=== PATIENT | female | born 1995 | race Caucasian/White ===

== ENCOUNTER 2016-07-20 20:11 | Emergency (ER) | payer MEDICAID ==
[2016-07-20 20:32] VITALS: BP 115/63
[2016-07-20 23:03] LABS: AMORPHOUS SEDIMENT,URINE TRACE /HPF; APPEARANCE,URINE SLIGHTLY-CLOUDY; BILIRUBIN,URINE NEGATIVE (NEGATIVE); GLUCOSE, URINE NEGATIVE (NEGATIVE); KETONES,URINE NEGATIVE (NEGATIVE); LEUKOCYTE ESTERASE,URINE TRACE (NEGATIVE); NITRITE,URINE NEGATIVE (NEGATIVE); PROTEIN,URINE NEGATIVE (NEGATIVE); URINE SPECIFIC GRAVITY 1.021; UROBILINOGEN,URINE NEGATIVE mg/dL (<2.0)
[2016-07-20 23:04] LABS: ABSOLUTE EOSINOPHILS # (AUTO) 0.2 10^3/uL (0.0-0.6); ABSOLUTE LYMPHOCYTES (AUTO) 2.5 10^3/uL (0.5-4.7); ABSOLUTE MONOCYTES (AUTO) 0.6 10^3/uL (0.1-1.4); ABSOLUTE NEUT (AUTO) 2.8 10^3/uL (1.7-8.2); BASOPHILS % (AUTO) 0.5 % (0-2); EOSINOPHILS % (AUTO) 2.7 % (0-6); HEMOGLOBIN 12.2 g/dL (12.0-15.5); HGB HCT DIFFERENCE 0.6; LYMPHOCYTES % (AUTO) 41.3 % (13-45); MEAN CORPUSCULAR HGB CONC 33.8 g/dL (32.0-36.0); MEAN CORPUSCULAR VOLUME 86 fl (80-97); MONOCYTES % (AUTO) 9.9 % (3-13); RED BLOOD COUNT 4.19 10^6/uL (3.72-5.28); RED CELL DISTRIBUTION WIDTH 14.7 % (11.5-14.0); SEGMENTED NEUTROPHILS % (AUTO) 45.6 % (42-78); WHITE BLOOD COUNT 6.1 10^3/uL (4.0-10.5)
[2016-07-20 23:16] LABS: ALANINE AMINOTRANSFERASE 29 U/L (9-52); ALBUMIN 4.4 g/dL (3.5-5.0); ALKALINE PHOSPHATASE 64 U/L (38-126); ANION GAP 13 (5-19); ASPARTATE AMINO TRANSFERASE 23 U/L (14-36); BILIRUBIN,DIRECT 0.1 mg/dL (0.0-0.4); BILIRUBIN,TOTAL 0.2 mg/dL (0.2-1.3); BLOOD UREA NITROGEN 14 mg/dL (7-20); CALCIUM 9.7 mg/dL (8.4-10.2); CARBON DIOXIDE 25 mmol/L (22-30); CHLORIDE 102 mmol/L (98-107); CREATININE RESULT 0.51 mg/dL (0.52-1.25); GLUCOSE 70 mg/dL (75-110); LIPASE 84.2 U/L (23-300); POTASSIUM 4.1 mmol/L (3.6-5.0); SODIUM 139.8 mmol/L (137-145); TOTAL PROTEIN 6.7 g/dL (6.3-8.2)
== END 2016-07-20 23:53 | disposition left against medical advice (07) ==
LOC: ER 20:11
DX: Z53.21 Procedure and treatment not carried out due to patient leaving prior to being seen by health care provider (principal)
CPT/HCPCS: 36415; 80053; 81001; 83690; 84702; 85025

== ENCOUNTER 2016-08-18 17:41 | Emergency (ER) | payer MEDICAID ==
[2016-08-18 17:55] VITALS: BP 98/68
--- NOTE | 2016-08-18 18:20 | ER Document Report ---
ED Flu Like - General Chief Complaint: Fever Stated Complaint: FEVER/CHILLS W/ Time Seen by Provider: 08/18/16 18:08 Mode of Arrival: Ambulatory Information source: Patient Notes: [id number] female presents to ED for complaint of fever chills body aches since yesterday. She states she took Tylenol last night none today. She is 10 weeks . She is 2 para 0. She had a miscarriage a year ago at 15 weeks TRAVEL OUTSIDE OF THE [place] IN LAST 30 DAYS: No - HPI Onset: Yesterday Timing/Duration: Intermittent Quality of pain: Achy Severity: Mild Pain Level: 2 Associated symptoms: Body/muscle aches, Fever, Rhinnorhea, Sinus pain/drainage Similar symptoms previously: Yes Recently seen / treated by doctor: No - Related Data Allergies/Adverse Reactions: Bee Sting Kit *RETIRED-05/12/10 [Bee Sting Kit] Allergy (Verified 08/18/16 17:52 ) hydrocodone [Hydrocodone] Allergy (Verified 08/18/16 17:52) Hives Past Medical History - General Information source: Patient - Social History Smoking Status: Current Every Day Smoker Cigarette use (# per day): Yes Chew tobacco use (# tins/day): No Smoking Education Provided: Yes - Less than 2 minutes Frequency of alcohol use: None Drug Abuse: None Lives with: Family Family History: Reviewed & Not Pertinent Patient has suicidal ideation: No Patient has homicidal ideation: No - Past Medical History Cardiac Medical History: Reports: None Pulmonary Medical History: Reports: Hx Asthma, Hx Bronchitis, Hx Pneumonia EENT Medical History: Reports: None Neurological Medical History: Reports: Hx Migraine Endocrine Medical History: Reports: Hx Hypothyroidism Renal/ Medical History: Reports: Hx Ovarian Cysts, Hx Pelvic Inflammatory Disease - Chlamydia Malignancy Medical History: Reports: None GI Medical History: Reports: None Musculoskeltal Medical History: Reports Hx Musculoskeletal Trauma Skin Medical History: Reports None Psychiatric Medical History: Reports: Hx Bipolar Disorder, Hx Depression, Hx Obsessive Compulsive Disorder Traumatic Medical History: Reports: Hx Fractures - Right wrist and left arm 2 and right ankle Past Surgical History: Reports: Hx Adenoidectomy, Hx Dilation and Curettage, Hx Oral Surgery - [place] teeth, Hx Tonsillectomy - Immunizations Immunizations up to date: Yes Hx Diphtheria, Pertussis, Tetanus Vaccination: Yes Review of Systems - Review of Systems Constitutional: Fever, Recent illness EENT: Nose discharge, Sinus discharge Cardiovascular: No symptoms reported Respiratory: Cough Gastrointestinal: No symptoms reported Genitourinary: No symptoms reported Female Genitourinary: No symptoms reported Musculoskeletal: No symptoms reported Skin: No symptoms reported Hematologic/Lymphatic: No symptoms reported Neurological/Psychological: No symptoms reported -: Yes All other systems reviewed and negative Physical Exam - Vital signs Vitals: Temp Pulse Resp BP Pulse Ox 98.9 F 94 16 98/68 L 99 08/18/16 17:46 08/18/16 17:46 08/18/16 17:46 08/18/16 17:46 08/18/16 17:46 Interpretation: Normal - General General appearance: Appears well, Alert - HEENT Head: Normocephalic, Atraumatic Eyes: Normal Pupils: PERRL Ears: Normal External canal: Normal Tympanic membrane: Normal Sinus: Normal Nasal: Purulent discharge, Swelling Mouth/Lips: Normal Mucous membranes: Normal Pharynx: Post nasal drainage Neck: Normal - Respiratory Respiratory status: No respiratory distress Chest status: Nontender Breath sounds: Nonproductive cough Chest palpation: Normal - Cardiovascular Rhythm: Regular Heart sounds: Normal auscultation Murmur: No - Abdominal Inspection: Normal Distension: No distension Bowel sounds: Normal Tenderness: Nontender Organomegaly: No organomegaly - Back Back: Normal, Nontender - Extremities General upper extremity: Normal inspection, Nontender, Normal color, Normal ROM , Normal temperature General lower extremity: Normal inspection, Nontender, Normal color, Normal ROM , Normal temperature, Normal weight bearing. No: Jimena's sign - Neurological Neuro grossly intact: Yes Cognition: Normal Orientation: AAOx4 [place] Coma Scale Eye Opening: Spontaneous [place] Coma Scale Verbal: Oriented [place] Coma Scale Motor: Obeys Commands [place] Coma Scale Total: 15 Speech: Normal Motor strength normal: LUE, RUE, LLE, RLE Sensory: Normal - Psychological Associated symptoms: Normal affect, Normal mood - Skin Skin Temperature: Warm Skin Moisture: Dry Skin Color: Normal Course - Vital Signs Vital signs: Temp Pulse Resp BP Pulse Ox 98.9 F 94 16 98/68 L 99 08/18/16 17:46 08/18/16 17:46 08/18/16 17:46 08/18/16 17:46 08/18/16 17:46 Discharge - Discharge Clinical Impression: URI (upper respiratory infection) Qualifiers: URI type: unspecified URI Qualified Code(s): J06.9 - Acute upper respiratory infection, unspecified Condition: Stable Disposition: HOME, SELF-CARE Additional Instructions: UPPER RESPIRATORY ILLNESS: You have a viral infection of the respiratory passages -- a "cold." This common infection causes nasal congestion, drainage, and often sore throat and cough. It is highly contagious. The disease usually lasts about 10 to 14 days. There is no "cure" for the viral infection -- it must run its course. If there is a complication, such as bacterial infection in the nose, sinuses, middle ear, or bronchial tubes, antibiotics may be required. The antibiotics won't affect the virus. Drink plenty of fluids. A humidifier may help. An expectorant medication or decongestant may make you more comfortable. Use acetaminophen or ibuprofen for fever or aches. See the doctor if fever persists over two days, if there is any significant worsening of your symptoms, or if you simply fail to improve as expected. COUGH-SUPPRESSANT & EXPECTORANT MEDICATION: You are to use a cough medication as needed for relief of symptoms. This medicine is a combination of an expectorant (to make the mucous thinner and more easily "coughed up") and a cough suppressant (to reduce the frequency of coughing). The cough-suppressant medicine is related to narcotics. You may experience mild nausea and sleepiness. Some patients who are very sensitive to narcotics may have stomach pain from this medicine. Taking the medicine with food reduces these side effects. Do not drive or work with machinery until you know how this medicine affects you. The expectorant should have no side effects. Iodine-containing expectorants (such as organidin) should not be taken by persons with active thyroid disease unless approved by your doctor. Call the doctor if you develop shortness of breath, hives, rash, itching, lightheadedness, or severe nausea and vomiting. Acetaminophen Acetaminophen may be taken for pain relief or fever control. It's much safer than aspirin, offering a wider range of "safe" dosages. It is safe during . Some brand names are Tylenol, Panadol, Datril, Anacin 3, Tempra, and Liquiprin. Acetaminophen can be repeated every four hours. The following are maximum recommended dosages: WEIGHT Dose Drops Elixir Chewable( 80mg) (LBS.) drprs=droppers tsp=teaspoon 6 40 mg .4 ml (1/2) 6-11 80 mg .8 ml (full) 1/2 tsp 1 tab 12-16 120 mg 1 1/2 drprs 3/4 tsp 1 1/2 tabs 17-23 160 mg 2 drprs 1 tsp 2 tabs 24-30 240 mg 3 drprs 1 1/2 tsp 3 tabs 30-35 320 mg 2 tsp 4 tabs 36-41 360 mg 2 1/4 tsp 4 1 /2 tabs 42-47 400 mg 2 1/2 tsp 5 tabs 48-53 480 mg 3 tsp 6 tabs 54-59 520 mg 3 1/4 tsp 6 1 /2 tabs 60-64 560 mg 3 1/2 tsp 7 tabs 65-70 600 mg 3 3/4 tsp 7 1 /2 tabs 71-76 640 mg 4 tsp 8 tabs 77-82 720 mg 4 1/2 tsp 9 tabs 83-88 800 mg 5 tsp 10 tabs >89 pounds or adults 650 mg to 900 mg Acetaminophen can be repeated every four hours. Maximum daily dose not to exceed 4000 mg. These maximum recommended dosages are slightly higher than the dosages written on the product container, but these dosages are very safe and well below the toxic dosage for acetaminophen. Diphenhydramine The use of diphenhydramine (Benadryl) has been recommended to control allergic symptoms. The 25 mg strength is available over- the-counter, as well as the elixir. This antihistamine is used for many symptoms. It's useful for itching, watering eyes and nose, allergic swelling, hives, and insect stings. The medication can be repeated four times daily. Age Elixir (12.5 mg/tsp) 25 mg pill 1 yr 1/4 tsp 2-3 yr 1/2 tsp 4-8 yr 1 tsp 9-14 yr 2 tsp one tab adult 1-2 tabs Antihistamines may cause drowsiness, especially with the first dose. Do not operate machinery or drive while under the effects of the medication. Do not combine the medication with alcohol, or with any other medication without talking to your doctor. FOLLOW-UP CARE: If you have been referred to a physician for follow-up care, call the physician s office for an appointment as you were instructed or within the next two days. If you experience worsening or a significant change in your symptoms, notify the physician immediately or return to the Emergency Department at any time for re-evaluation. Referrals: LASHONDA JOAQUIN MD [Primary Care Provider] - Follow up as needed
== END 2016-08-18 18:20 | disposition home or self-care (01) ==
LOC: ER 17:41
DX: J06.9 Acute upper respiratory infection, unspecified (principal); R50.9 Fever, unspecified; R52 Pain, unspecified; Z3A.10 10 weeks gestation of pregnancy; F17.210 Nicotine dependence, cigarettes, uncomplicated
CPT/HCPCS: 99283

== ENCOUNTER 2016-10-12 22:43 | Emergency (ER) | payer MEDICAID ==
[2016-10-13 00:53] LABS: APPEARANCE,URINE SLIGHTLY-CLOUDY; BILIRUBIN,URINE NEGATIVE (NEGATIVE); GLUCOSE, URINE NEGATIVE (NEGATIVE); KETONES,URINE 80 mg/dL (NEGATIVE); LEUKOCYTE ESTERASE,URINE TRACE (NEGATIVE); NITRITE,URINE NEGATIVE (NEGATIVE); PROTEIN,URINE 100 mg/dL (NEGATIVE); URINE SPECIFIC GRAVITY 1.033
[2016-10-13 01:46] LABS: ABSOLUTE EOSINOPHILS # (AUTO) 0.2 10^3/uL (0.0-0.6); ABSOLUTE LYMPHOCYTES (AUTO) 1.5 10^3/uL (0.5-4.7); ABSOLUTE MONOCYTES (AUTO) 0.4 10^3/uL (0.1-1.4); ABSOLUTE NEUT (AUTO) 4.6 10^3/uL (1.7-8.2); BASOPHILS % (AUTO) 0.6 % (0-2); EOSINOPHILS % (AUTO) 2.3 % (0-6); HEMATOCRIT 32.1 % (36.0-47.0); HEMOGLOBIN 10.8 g/dL (12.0-15.5); HGB HCT DIFFERENCE 0.3; MEAN CORPUSCULAR HEMOGLOBIN 28.9 pg (27.0-33.4); MEAN CORPUSCULAR HGB CONC 33.6 g/dL (32.0-36.0); MEAN CORPUSCULAR VOLUME 86 fl (80-97); MONOCYTES % (AUTO) 5.7 % (3-13); RED BLOOD COUNT 3.74 10^6/uL (3.72-5.28); RED CELL DISTRIBUTION WIDTH 14.4 % (11.5-14.0); SEGMENTED NEUTROPHILS % (AUTO) 68.4 % (42-78); WHITE BLOOD COUNT 6.7 10^3/uL (4.0-10.5)
[2016-10-13] MEDS ORDERED: NORMAL SALINE 1000 ML 1,000 ML IV ONE (02:06)
[2016-10-13] MEDS ORDERED: ONDANSETRON HCL INJ/PF 4 MG/2 ML SDV IV ONE (02:07)
[2016-10-13] MEDS ORDERED: FAMOTIDINE INJ/PF 20 MG/2 ML SDV IV ONE (02:07)
[2016-10-13 02:09] LABS: ALANINE AMINOTRANSFERASE 24 U/L (9-52); ALBUMIN 3.8 g/dL (3.5-5.0); ALKALINE PHOSPHATASE 84 U/L (38-126); ANION GAP 9 (5-19); ASPARTATE AMINO TRANSFERASE 17 U/L (14-36); BILIRUBIN,DIRECT 0.2 mg/dL (0.0-0.4); BILIRUBIN,TOTAL 0.4 mg/dL (0.2-1.3); BLOOD UREA NITROGEN 11 mg/dL (7-20); CALCIUM 9.3 mg/dL (8.4-10.2); CARBON DIOXIDE 24 mmol/L (22-30); CHLORIDE 105 mmol/L (98-107); CREATININE RESULT 0.45 mg/dL (0.52-1.25); GLUCOSE 122 mg/dL (75-110); LIPASE 115.1 U/L (23-300); POTASSIUM 3.5 mmol/L (3.6-5.0); SODIUM 138.2 mmol/L (137-145); TOTAL PROTEIN 6.6 g/dL (6.3-8.2)
[2016-10-13] MEDS ORDERED: DEXTROSE 5%-LACTATED RINGERS 1,000 ML IV ONE (03:04)
[2016-10-13] MEDS ORDERED: MICONAZOLE NITRATE 200 MG/SUPP (3 SUPP/BOX) VG ONE (04:45)
[2016-10-13 04:58] LABS: CHLAM PCR NOT DETECTED (NOT DETECT)
[2016-10-13] MEDS ORDERED: ONDANSETRON ODT 4 MG TAB (6 TAB/DSPK) PO PRN (05:15)
--- NOTE | 2016-10-13 05:29 | ER Document Report ---
ED General - General Chief Complaint: Abdominal pain, vaginal discharge Stated Complaint: DISCHARGE,ITCHING,ABDOMINAL PAIN Time Seen by Provider: 10/13/16 01:40 Mode of Arrival: Ambulatory Information source: Patient, Parent TRAVEL OUTSIDE OF THE [place] IN LAST 30 DAYS: No - HPI Notes: Patient is a 21-year-old white female currently 17 weeks presents to the emergency department with report that she previously was diagnosed with a UTI and given Keflex. On repeat exam they thought she still had a UTI and was placed upon macrobid, but this is making her vomit for the last 3 days. She states the Macrobid has also given her a yeast she describes whitish discharge. She denies any vaginal bleeding or fever or hematemesis. She reports no back pain. She states she feels dehydrated and has decreased urine output. - Related Data Allergies/Adverse Reactions: Bee Sting Kit *RETIRED-05/12/10 [Bee Sting Kit] Allergy (Verified 08/18/16 17:52 ) hydrocodone [Hydrocodone] Allergy (Verified 08/18/16 17:52) Hives Past Medical History - General Information source: Patient - Social History Smoking Status: Current Every Day Smoker Smoking Education Provided: Yes Frequency of alcohol use: None Drug Abuse: None Lives with: Family Family History: Reviewed & Not Pertinent Pulmonary Medical History: Reports: Hx Asthma, Hx Bronchitis, Hx Pneumonia Neurological Medical History: Reports: Hx Migraine Endocrine Medical History: Reports: Hx Hypothyroidism Renal/ Medical History: Reports: Hx Ovarian Cysts, Hx Pelvic Inflammatory Disease - Chlamydia. Denies: Hx Peritoneal Dialysis Musculoskeltal Medical History: Reports Hx Musculoskeletal Trauma Psychiatric Medical History: Reports: Hx Bipolar Disorder, Hx Depression, Hx Obsessive Compulsive Disorder Traumatic Medical History: Reports: Hx Fractures - Right wrist and left arm 2 and right ankle Past Surgical History: Reports: Hx Adenoidectomy, Hx Dilation and Curettage, Hx Gynecologic Surgery - D & C, Hx Oral Surgery - [place] teeth, Hx Tonsillectomy - Immunizations Immunizations up to date: Yes Hx Diphtheria, Pertussis, Tetanus Vaccination: Yes Review of Systems - Review of Systems Notes: REVIEW OF SYSTEMS: CONSTITUTIONAL : Denies fever, chills, or sweats. EENT: Denies eye, ear, throat, or mouth pain or symptoms. Denies nasal or sinus congestion or discharge. Denies throat, tongue, or mouth swelling or difficulty swallowing. CARDIOVASCULAR: Denies chest pain. Denies palpitations or racing or irregular heart beat. Denies ankle edema. RESPIRATORY: Denies cough, cold, or chest congestion. Denies shortness of breath, difficulty breathing, or wheezing. GASTROINTESTINAL: Denies abdominal pain or distention. Denies diarrhea. Denies blood in vomitus, stools, or per rectum. Denies black, tarry stools. Denies constipation. GENITOURINARY: Denies difficulty urinating, painful urination, burning, frequency, blood in urine, or discharge. FEMALE GENITOURINARY: Denies vaginal bleeding, heavy or abnormal periods, irregular periods. MUSCULOSKELETAL: Denies back or neck pain or stiffness. Denies joint pain or swelling. SKIN: Denies rash, lesions or sores. HEMATOLOGIC : Denies easy bruising or bleeding. LYMPHATIC: Denies swollen, enlarged glands. NEUROLOGICAL: Denies confusion or altered mental status. Denies passing out or loss of consciousness. Denies dizziness. Denies headache. Denies weakness or paralysis or loss of use of either side. Denies problems with gait or speech. Denies sensory loss, numbness, or tingling. Denies seizures. PSYCHIATRIC: Denies anxiety or stress. Denies depression, suicidal ideation, or homicidal ideation. ALL OTHER SYSTEMS REVIEWED AND NEGATIVE. Dictation was performed using [employer] voice recognition software Physical Exam - Vital signs Vitals: Temp Pulse Resp BP Pulse Ox 98.2 F 79 16 97/49 L 97 10/12/16 23:22 10/12/16 23:22 10/12/16 23:22 10/12/16 23:22 10/12/16 23:22 - Notes Notes: PHYSICAL EXAMINATION: GENERAL: Well-appearing, well-nourished and in no acute distress. HEAD: Atraumatic, normocephalic. EYES: Pupils equal round and reactive to light, extraocular movements intact, conjunctiva are normal. ENT: Nares patent, oropharynx clear without exudates. Dry mucous membranes. NECK: Normal range of motion, supple without lymphadenopathy LUNGS: Breath sounds clear to auscultation bilaterally and equal. No wheezes rales or rhonchi. HEART: Regular rate and rhythm without murmurs ABDOMEN: Soft, nontender abdomen. No guarding, no rebound. No masses appreciated. Gravid consistent with 17 weeks. Female : Normal external female genitalia with exception of whitish discharge. No lesions noted. No cervical motion tenderness or thinning. No bleeding. No adnexal mass or tenderness. Uterus appears consistent with 17 week gestation. Musculoskeletal: Normal range of motion, no pitting or edema. No cyanosis. NEUROLOGICAL: Cranial nerves grossly intact. Normal speech, normal gait. Normal sensory, motor exams PSYCH: Normal mood, normal affect. SKIN: Warm, Dry, normal turgor, no rashes or lesions noted. Course - Re-evaluation Re-evalutation: 10/13/16 07:04 Heart tones were normal. The patient was rehydrated with 1 L normal saline then was given 1 L of lactated Ringer's. The patient was given Zofran and was able to tolerate p.o. fluids without difficulty after this. No evidence for compromise or PID. No current suggestion for UTI, but a urine culture was taken. Most likely the vomiting at 17 weeks is more consistent with medication induced gastritis. No evidence for anemia or renal insufficiency or significant electrolyte imbalance. - Vital Signs Vital signs: Temp Pulse Resp BP Pulse Ox 98.2 F 79 16 93/45 L 96 10/12/16 23:22 10/12/16 23:22 10/12/16 23:22 10/13/16 05:02 10/13/16 05:02 - Laboratory Result Diagrams: 10/13/16 01:38 10/13/16 01:38 Laboratory results interpreted by me: 10/13/16 10/13/16 10/13/16 00:39 01:38 01:38 Hgb 10.8 L Hct 32.1 L RDW 14.4 H Plt Count 134 L Potassium 3.5 L Creatinine 0.45 L Glucose 122 H Beta HCG, Quant 44562.00 H Urine Protein 100 H Urine Ketones 80 H Urine Urobilinogen 4.0 H Ur Leukocyte Esterase TRACE H Discharge - Discharge Clinical Impression: Vaginal candidiasis, Dehydration Vomiting Qualifiers: Vomiting type: unspecified Vomiting Intractability: non-intractable Nausea presence: with nausea Qualified Code(s): R11.2 - Nausea with vomiting, unspecified Condition: Stable Disposition: HOME, SELF-CARE Instructions: Antinausea Medication ([facility]), Vaginal Yeast Infection ([facility]), Dehydration ([facility]) Additional Instructions: [place] diet. Drink plenty of fluids. Take Monistat as directed for yeast infection. Stop Macrobid (nitrofurantoin). Prescriptions: Ondansetron [Zofran Odt 4 mg Tablet] 1 tab PO Q8HP PRN #10 tab.rapdis PRN Reason: For Nausea/Vomiting Forms: Return to Work Referrals: LASHONDA JOAQUIN MD [Primary Care Provider] - Follow up as needed
[2016-10-13 05:30] VITALS: BP 93/45
[2016-10-13] MEDS ORDERED: MICONAZOLE NITRATE 200 MG/SUPP (3 SUPP/BOX) ONE (05:49)
== END 2016-10-13 05:44 | disposition home or self-care (01) ==
LOC: ER 22:43
DX: O98.812 Other maternal infectious and parasitic diseases complicating pregnancy, second trimester (principal); B37.3 Candidiasis of vulva and vagina; O21.9 Vomiting of pregnancy, unspecified; O99.282 Endocrine, nutritional and metabolic diseases complicating pregnancy, second trimester; E86.0 Dehydration; O99.512 Diseases of the respiratory system complicating pregnancy, second trimester; J45.909 Unspecified asthma, uncomplicated; O99.332 Smoking (tobacco) complicating pregnancy, second trimester; Z3A.17 17 weeks gestation of pregnancy; Z87.440 Personal history of urinary (tract) infections; Z88.8 Allergy status to other drugs, medicaments and biological substances; Z88.5 Allergy status to narcotic agent
CPT/HCPCS: 99283; 96361; 96375; 96365; 86900; 86901; 36415; 87086; 87210; 84702; 83690; 85025; 80053; 81001; 87491; 87591; J2405; J7030; S0028; J3490

== ENCOUNTER 2016-10-29 01:37 | Outpatient (CLI) | payer MEDICAID | END 2016-10-29 02:05 | disposition home or self-care (01) | LOC: LC 01:37 | PROVIDERS: ATTEND Obstetrics & Gynecology | PROC: 4A1HXCZ Monitoring of Products of Conception, Cardiac Rate, External Approach (ICD-10-PCS; principal; 2016-10-29) | DX: O36.8120 Decreased fetal movements, second trimester, not applicable or unspecified (principal); O99.89 Other specified diseases and conditions complicating pregnancy, childbirth and the puerperium; M25.552 Pain in left hip; M54.9 Dorsalgia, unspecified; Z3A.19 19 weeks gestation of pregnancy ==

== ENCOUNTER 2017-01-02 | Outpatient (CLI) | payer MEDICAID ==
[2017-01-02 01:03] LABS: APPEARANCE,URINE SLIGHTLY-CLOUDY; BILIRUBIN,URINE NEGATIVE (NEGATIVE); CALCIUM OXALATE CRYSTALS,URINE MODERATE /HPF; GLUCOSE, URINE NEGATIVE (NEGATIVE); KETONES,URINE NEGATIVE (NEGATIVE); LEUKOCYTE ESTERASE,URINE TRACE (NEGATIVE); NITRITE,URINE NEGATIVE (NEGATIVE); PROTEIN,URINE NEGATIVE (NEGATIVE); URINE SPECIFIC GRAVITY 1.029
[2017-01-02] MEDS ORDERED: PROMETHAZINE HCL INJ 25 MG/1 ML VIAL IM ONE (01:27)
[2017-01-02] MEDS ORDERED: DEXTROSE 5%-1/2 NORMAL SALINE 1,000 ML IV PRN (01:32)
[2017-01-02 01:35] LABS: URINE BARBITURATES SCREEN NEGATIVE; URINE METHADONE SCREEN NEGATIVE; URINE OPIATES LOW NEGATIVE; URINE PHENCYCLIDINE SCREEN NEGATIVE
[2017-01-02] MEDS ORDERED: PROMETHAZINE HCL INJ 25 MG/1 ML VIAL ONE (01:45)
== END 2017-01-02 02:26 | disposition home or self-care (01) ==
LOC: LC
PROVIDERS: ATTEND Obstetrics & Gynecology
DX: Z34.90 Encounter for supervision of normal pregnancy, unspecified, unspecified trimester (principal)
CPT/HCPCS: 81001; 80307; J2550

== ENCOUNTER 2017-01-12 18:39 | Outpatient (CLI) | payer MEDICAID ==
[2017-01-12 19:23] LABS: APPEARANCE,URINE SLIGHTLY-CLOUDY; BILIRUBIN,URINE NEGATIVE (NEGATIVE); GLUCOSE, URINE NEGATIVE (NEGATIVE); KETONES,URINE NEGATIVE (NEGATIVE); LEUKOCYTE ESTERASE,URINE NEGATIVE (NEGATIVE); NITRITE,URINE NEGATIVE (NEGATIVE); PROTEIN,URINE NEGATIVE (NEGATIVE); URINE SPECIFIC GRAVITY 1.031
[2017-01-12 19:25] LABS: AMNISURE (ROM) NEGATIVE (NEGATIVE)
[2017-01-12 19:37] LABS: URINE BARBITURATES SCREEN NEGATIVE; URINE METHADONE SCREEN NEGATIVE; URINE OPIATES LOW NEGATIVE; URINE PHENCYCLIDINE SCREEN NEGATIVE
--- NOTE | 2017-01-12 23:20 | RADIOLOGY REPORT (SQ) ---
EXAM DESCRIPTION: U/S OB LIMITED COMPLETED DATE/TIME: 01/12/2017 10:07 pm REASON FOR STUDY: Growth, presentation and ARRON COMPARISON: None. TECHNIQUE: Limited transabdominal grayscale ultrasound for evaluation of specific requested obstetri shyanne parameters. LIMITATIONS: None. FINDINGS: Live intrauterine with composite ultrasound age of 29 weeks 5 days, CORNELIUS 03[birth year] 17. EFW 1311 g 27th percentile. ARRON: 11.8 cm cm. FHR: 135 beats per minute. PRESENTATION: Transverse. OTHER: Anterior placenta. IMPRESSION: LIMITED OBSTETRICAL ULTRASOUND WITH MEASURED PARAMETERS DELINEATED ABOVE. Trimester of : Third trimester - 28 weeks to delivery. TECHNICAL DOCUMENTATION: JOB ID: [id number] [employer]- All Rights Reserved
== END 2017-01-12 22:19 | disposition home or self-care (01) ==
LOC: LC 18:39
PROVIDERS: ATTEND Student in an Organized Health Care Education/Training Program
PROC: 4A1HXCZ Monitoring of Products of Conception, Cardiac Rate, External Approach (ICD-10-PCS; principal; 2017-01-12)
DX: Z34.93 Encounter for supervision of normal pregnancy, unspecified, third trimester (principal)
CPT/HCPCS: 76815; 80307; 81001; 84112

== ENCOUNTER 2017-03-03 17:42 | Outpatient (CLI) | payer MEDICAID ==
--- NOTE | 2017-03-03 18:50 | Non Stress Test Report ---
Non Stress Test Datetime Report Generated by CPN: 03/03/2017 18:49 DEMOGRAPHIC EGA NST: 37.5 INDICATION Indication for Study: Decreased Movement Indication for Study (NST) Other: repeat from the office VITAL SIGNS Temperature - NST: 97.6 Pulse - NST: 78 RESP - NST: 16 NBPSYS NST: 103 MONITORING Monitor Explained: Monitor Explained; Test Explained; Patient Verbalized Understanding Time on Monitor: 03/03/2017 17:53 Time off Monitor: 03/03/2017 18:37 NST Duration: 44 NST INTERVENTIONS NST Interventions: PO Hydration; Reposition Patient Physician Notified NST: Dr. Walker BABY A: [id number] BABY A Movement : Present Contraction Frequency : 0 FHR Baseline : 120 Accelerations : 15X15 Decelerations : None Variability : Moderate 6-25bpm NST Review: Meets Criteria for Reactive NST NST Review and Verified By : Racquel Roy RN NST Results: Reactive NST REPORT Report Trigger: Send Report
== END 2017-03-03 18:50 | disposition home or self-care (01) ==
LOC: LC 17:42
PROVIDERS: ATTEND Student in an Organized Health Care Education/Training Program
PROC: 4A1HXCZ Monitoring of Products of Conception, Cardiac Rate, External Approach (ICD-10-PCS; principal; 2017-03-03)
DX: O36.8130 Decreased fetal movements, third trimester, not applicable or unspecified (principal); Z3A.37 37 weeks gestation of pregnancy
CPT/HCPCS: 59025

== ENCOUNTER 2017-03-07 16:49 | Outpatient (CLI) | payer MEDICAID ==
--- NOTE | 2017-03-07 17:44 | Non Stress Test Report ---
Non Stress Test Datetime Report Generated by CPN: 03/07/2017 17:44 DEMOGRAPHIC EGA NST: 38.2 INDICATION Indication for Study: Intrauterine Growth Restriction VITAL SIGNS Temperature - NST: 99.0 Pulse - NST: 67 RESP - NST: 16 NBPSYS NST: 101 NBPDIA NST: 55 MONITORING Monitor Explained: Monitor Explained; Test Explained; Patient Verbalized Understanding Time on Monitor: 03/07/2017 17:02 Time off Monitor: 03/07/2017 17:24 NST Duration: 22 NST INTERVENTIONS NST Interventions: PO Hydration Physician Notified NST: Dr. Eyal BABY A: [id number] BABY A Movement : Present Contraction Frequency : 0 FHR Baseline : 115 Accelerations : 15X15 Decelerations : None Variability : Moderate 6-25bpm NST Review: Meets Criteria for Reactive NST NST Review and Verified By : Eliazar Birch RN NST Results: Reactive NST REPORT Report Trigger: Send Report
== END 2017-03-07 17:30 | disposition home or self-care (01) ==
LOC: LC 16:49
PROVIDERS: ATTEND Obstetrics & Gynecology
PROC: 4A1HXCZ Monitoring of Products of Conception, Cardiac Rate, External Approach (ICD-10-PCS; principal; 2017-03-07)
DX: O36.5930 Maternal care for other known or suspected poor fetal growth, third trimester, not applicable or unspecified (principal); Z3A.38 38 weeks gestation of pregnancy
CPT/HCPCS: 59025

== ENCOUNTER 2017-03-09 15:23 | Outpatient (CLI) | payer MEDICAID ==
[2017-03-09 16:18] LABS: URINE BARBITURATES SCREEN NEGATIVE; URINE METHADONE SCREEN NEGATIVE; URINE OPIATES LOW NEGATIVE; URINE PHENCYCLIDINE SCREEN NEGATIVE
--- NOTE | 2017-03-09 16:27 | Non Stress Test Report ---
Non Stress Test Datetime Report Generated by CPN: 03/09/2017 16:27 DEMOGRAPHIC EGA NST: 38.4 INDICATION Indication for Study: Decreased Movement MONITORING Monitor Explained: Monitor Explained; Test Explained; Patient Verbalized Understanding Time on Monitor: 03/09/2017 15:39 Time off Monitor: 03/09/2017 16:16 NST Duration: 37 NST INTERVENTIONS NST Interventions: PO Hydration; Reposition Patient Physician Notified NST: C.Stewart, CNM BABY A: [id number] BABY A Movement : Present Contraction Frequency : None FHR Baseline : 120 Accelerations : 15X15 Decelerations : None Variability : Moderate 6-25bpm NST Review: Meets Criteria for Reactive NST NST Review and Verified By : Demetrice Beard RN NST Results: Reactive NST REPORT Report Trigger: Send Report
[2017-03-09 18:40] LABS: AMORPHOUS SEDIMENT,URINE TRACE /HPF; APPEARANCE,URINE CLOUDY; BILIRUBIN,URINE NEGATIVE (NEGATIVE); CALCIUM OXALATE CRYSTALS,URINE RARE /HPF; GLUCOSE, URINE NEGATIVE (NEGATIVE); KETONES,URINE TRACE mg/dL (NEGATIVE); LEUKOCYTE ESTERASE,URINE TRACE (NEGATIVE); NITRITE,URINE NEGATIVE (NEGATIVE); PROTEIN,URINE 30 mg/dL (NEGATIVE)
== END 2017-03-09 16:29 | disposition home or self-care (01) ==
LOC: LC 15:23
PROVIDERS: ATTEND Student in an Organized Health Care Education/Training Program
PROC: 4A1HXCZ Monitoring of Products of Conception, Cardiac Rate, External Approach (ICD-10-PCS; principal; 2017-03-09)
DX: O36.8130 Decreased fetal movements, third trimester, not applicable or unspecified (principal); Z3A.38 38 weeks gestation of pregnancy
CPT/HCPCS: 59025; 80307; 81001

== ENCOUNTER 2017-03-14 08:37 | Inpatient (IN) | payer MEDICAID ==
[2017-03-14] MEDS ORDERED: OXYTOCIN/NORMAL SALINE 20 UNIT/1,000 ML RTUINJ IV PRN ×2 (08:56→23:00)
[2017-03-14] MEDS ORDERED: RINGERS SOLUTION,LACTATED 300 ML IV ONE (08:56)
[2017-03-14] MEDS ORDERED: DINOPROSTONE 10 MG VAGINAL INSERT.SR PV PRN (08:56)
[2017-03-14] MEDS ORDERED: DINOPROSTONE 10 MG VAGINAL INSERT.SR ONE (09:10)
[2017-03-14 09:41] LABS: ABSOLUTE EOSINOPHILS # (AUTO) 0.2 10^3/uL (0.0-0.6); ABSOLUTE LYMPHOCYTES (AUTO) 2.8 10^3/uL (0.5-4.7); ABSOLUTE MONOCYTES (AUTO) 0.7 10^3/uL (0.1-1.4); BASOPHILS % (AUTO) 0.4 % (0-2); EOSINOPHILS % (AUTO) 1.5 % (0-6); HEMOGLOBIN 12.4 g/dL (12.0-15.5); HGB HCT DIFFERENCE 1.2; LYMPHOCYTES % (AUTO) 25.9 % (13-45); MEAN CORPUSCULAR HEMOGLOBIN 30.8 pg (27.0-33.4); MEAN CORPUSCULAR HGB CONC 34.3 g/dL (32.0-36.0); MEAN CORPUSCULAR VOLUME 90 fl (80-97); MONOCYTES % (AUTO) 6.3 % (3-13); RED BLOOD COUNT 4.01 10^6/uL (3.72-5.28); SEGMENTED NEUTROPHILS % (AUTO) 65.9 % (42-78); WHITE BLOOD COUNT 10.6 10^3/uL (4.0-10.5)
[2017-03-14] MEDS: RINGERS SOLUTION,LACTATED 1,000 ML IV PRN (10:04)
[2017-03-14] MEDS ORDERED: ACETAMINOPHEN 325 MG TABLET PO PRN (10:40)
[2017-03-14] MEDS ORDERED: ACETAMINOPHEN 325 MG TABLET ONE (10:45)
--- NOTE | 2017-03-14 14:18 | L&D Progress Notes ---
PROGRESS NOTES Datetime Report Generated by CPN: 03/14/2017 14:18 PROGRESS NOTE Plan: Continue Present Management; Cervical Ripening Vital Signs : Reviewed; Within Normal Limits Comment: pt cannot get suboxone from pharmacy, she is the only one who can pick it up, she needs to smoke, does not want to sign herself out AMA to smoke, will give pt a Nicotine patch 21 mg x 24 hours, at present Cat 1 strip, minimal/mod variability with accels, pt is not exhibiting withdrawal symptoms, will have Dr. Viktoria come and discuaa with pt effects and plans for baby after delivery with mom taking suboxone MEMBRANES Membranes: Intact FETUS A : 38.4 SIGNATURE SIGNATURE: [id number];[id number] SIGNATURE: [id number] SIGNATURE: [id number] SIGNATURE: [id number] Assignment: Delmer Palomo MD Signature: with User ID: [email or web address] : with User ID: [email or web address]
[2017-03-14] MEDS: NICOTINE 21 MG/24 HR PATCH.TD24 TD PRN (15:11)
[2017-03-14] MEDS ORDERED: METHADONE HCL 10 MG TABLET ONE (22:37)
[2017-03-14] MEDS ORDERED: METHADONE HCL 10 MG TABLET PO ONE (23:00)
[2017-03-15] MEDS ORDERED: OXYTOCIN/NORMAL SALINE 20 UNIT/1,000 ML RTUINJ ONE (00:09)
[2017-03-15] MEDS ORDERED: NICOTINE 21 MG/24 HR PATCH.TD24 ONE (01:01)
[2017-03-15] MEDS: NICOTINE 21 MG/24 HR PATCH.TD24 TD PRN (01:06)
[2017-03-15] MEDS ORDERED: METHADONE HCL 10 MG TABLET ONE (05:54)
[2017-03-15] MEDS: METHADONE HCL 10 MG TABLET PO SCH ×3 (06:10→22:21)
[2017-03-15] MEDS: RINGERS SOLUTION,LACTATED 1,000 ML IV PRN (06:11)
[2017-03-15 08:01] LABS: APPEARANCE,URINE CLEAR; BILIRUBIN,URINE NEGATIVE (NEGATIVE); GLUCOSE, URINE NEGATIVE (NEGATIVE); KETONES,URINE NEGATIVE (NEGATIVE); LEUKOCYTE ESTERASE,URINE NEGATIVE (NEGATIVE); NITRITE,URINE NEGATIVE (NEGATIVE); PROTEIN,URINE NEGATIVE (NEGATIVE); URINE SPECIFIC GRAVITY 1.017
[2017-03-15 08:16] LABS: URINE BARBITURATES SCREEN NEGATIVE; URINE OPIATES LOW NEGATIVE; URINE PHENCYCLIDINE SCREEN NEGATIVE
[2017-03-15 08:17] LABS: URINE METHADONE SCREEN UNCONFIRMED POSITIVE
[2017-03-15] MEDS ORDERED: BUPIVACAINE HCL 0.25 % INJ/PF (2.5 MG/1 ML) 30 ML VIAL ONE (10:19)
[2017-03-15] MEDS ORDERED: EPHEDRINE SULFATE INJ 50 MG/1 ML AMPULE ONE (10:19)
[2017-03-15] MEDS ORDERED: FENTANYL/BUPIVACAINE/NS/PF 200 MCG/100 ML RTUINJ EPI ONE (10:19)
--- NOTE | 2017-03-15 13:37 | L&D Progress Notes ---
PROGRESS NOTES Datetime Report Generated by CPN: 03/15/2017 13:36 PROGRESS NOTE Impression Other: IOL-IUGR Procedures: Sterile Vag Exam Informed Consent Obtained: Induction of Labor; Risks, Benefits and Alternatives Discussed Vital Signs : Reviewed; Within Normal Limits Vital Signs Comments: x1 elevated with cervical exam Comment: S: reports some pain relief with epidural placement O: as stated above, pit @ 20mu/min A: IUP @ 39w3d IOL for IUGR-stable, progressing P: continue present management. Considered IUPC placement but good cervical change since last exam, reassess prn. VAGINAL EXAM Dilatation: 4-5 Effacement: 100 Station: -2 Contractions: 1.5-3 MEMBRANES Membranes: Ruptured Amniotic Fluid Color: Clear FETUS A FHR - Baseline: 115 Monitoring: External US Variability: Moderate 6-25bpm Decelerations: Late; Variable FHR Category: Category II FHR Comments: position changes FETUS C SIGNATURE: [id number];[id number] Assignment: Destinee Birch MD Signature: with User ID: [email or web address] : with User ID: [email or web address]
[2017-03-15] MEDS ORDERED: MISOPROSTOL 0.2 MG TABLET ONE (14:02)
[2017-03-15] MEDS ORDERED: LIDOCAINE 1% INJ-PF (10 MG/ML) 30 ML SDV ONE (14:02)
--- NOTE | 2017-03-15 15:12 | L&D Progress Notes ---
PROGRESS NOTES Datetime Report Generated by CPN: 03/15/2017 15:11 PROGRESS NOTE Impression Other: IOL-progressing well Procedures: Intrauterine Pressure Catheter; Scalp Electrode; Sterile Vag Exam Plan: Continue Present Management Informed Consent Obtained: Vaginal Delivery; Induction of Labor; Risks, Benefits and Alternatives Discussed Vital Signs : Reviewed; Within Normal Limits Comment: S: pt. with more relief of pain with epidural placement since last exam O: VSS, pit continues at 20mu/min, cervix as stated above A: IUP @ 39w3d IOL for IUGR-stable, IUPC and FSE inserted without difficulty. Pt. tolerated well, head better position at this time P: continue IOL, reassess as clinically indicated. Dr. Birch aware of pt status. VAGINAL EXAM Contractions: 1.5-5 MEMBRANES Amniotic Fluid Color: Clear FETUS A Monitoring: Internal Scalp Electrode Decelerations: Early; Late; Variable FHR Category: Category II FETUS C SIGNATURE: [id number];[id number] Assignment: Destinee Birch MD Signature: with User ID: [email or web address] : with User ID: [email or web address]
[2017-03-15] MEDS ORDERED: PROMETHAZINE HCL INJ 25 MG/1 ML VIAL IV PRN (16:00)
[2017-03-15] MEDS ORDERED: DIBUCAINE 1% OINTMENT 28 GM TP PRN (16:00)
[2017-03-15] MEDS ORDERED: OXYTOCIN/NORMAL SALINE 20 UNIT/1,000 ML RTUINJ IV PRN (16:00)
[2017-03-15] MEDS ORDERED: DIPHENHYDRAMINE HCL 25 MG CAPSULE PO PRN (16:00)
[2017-03-15] MEDS ORDERED: ZOLPIDEM TARTRATE 5 MG TABLET PO PRN (16:00)
[2017-03-15] MEDS ORDERED: ACETAMINOPHEN 325 MG TABLET PO PRN (16:00)
[2017-03-15] MEDS ORDERED: GLYCERIN/WITCH HAZEL LEAF 1 EACH MED..PAD TP PRN (16:00)
[2017-03-15] MEDS ORDERED: PROMETHAZINE HCL 25 MG SUPP.RECT PR PRN (16:00)
[2017-03-15] MEDS ORDERED: ACETAMINOPHEN 650 MG SUPP.RECT PR PRN (16:00)
[2017-03-15] MEDS ORDERED: NA PHOS,M-B/NA PHOS,DI-BA (ADULT) 133 ML ENEMA PR PRN (16:00)
[2017-03-15] MEDS ORDERED: PSEUDOEPHEDRINE HCL 30 MG TABLET PO PRN (16:00)
[2017-03-15] MEDS ORDERED: MEASLES,MUMPS&RUBELLA VACC/PF 0.5 ML VIAL SUBCUT PRN (16:00)
[2017-03-15] MEDS ORDERED: MAGNESIUM HYDROXIDE SUSP 30 ML UDCUP PO PRN (16:00)
[2017-03-15] MEDS ORDERED: BENZOCAINE/MENTHOL AEROSOL SPRAY 56 ML TOP PRN (16:00)
[2017-03-15] MEDS ORDERED: PROMETHAZINE HCL 25 MG TABLET PO PRN (16:00)
[2017-03-15] MEDS ORDERED: DIPH/PERTUSS(ACELL)/TETANUS VAC/PF 0.5 ML SYR (>=10YO) IM PRN (16:00)
--- NOTE | 2017-03-15 16:10 | Warning Signs in Babies ---
VOD Warning Signs Datetime Report Generated by [facility]: 03/15/2017 16:10 VOD#608 -Warning Signs in Babies: Viewed with Parent(s)/Family (03/15/2017 16:09:Anna Tinoco RN)
--- NOTE | 2017-03-15 17:30 | Delivery Summary ---
Del Sum A-C Datetime Report Generated by CPN: 03/15/2017 17:30 DELIVERY PERSONNEL DELIVERY PERSONNEL: [id number] Delivery Doctor:: Kristine Stewart CNM Nurse Lapping Machine Tender Certified:: Kristine Stewart CNM Labor and Delivery Nurse:: YAN Pichardo Labor and Delivery Nurse:: Anna Tinoco RN Nursery Nurse:: NANDINI Grier/ARMIN: Jennifer Dillon CNA II MATERNAL INFORMATION Delivery Anesthesia: Epidural Medications After Delivery: Pitocin Bolus-Please Comment Meds After Delivery Comment: pitocin 20 units in 1000 ml bolusing per order Estimated Blood Loss (ml): 100 Maternal Complications: Other Other Maternal Complications: vasoprevia of placenta Provider Comments: pt. progressed to c/c/1 with urge to push. Began pushing with RN then upon my arrival and with some coaching went on to deliver a viable baby girl. Baby placed on maternal abdomen, terminal mec and meconium stained fluid noticed at delivery. Baby with vigorous respiratory effort and cry at delivery.Cord allowed to stop pulsating then clamped x2 and cut by FOB (cord blood collected, nursery RN in room for delivery). Small piece of Placenta protruding from cervix but undelivered. Placenta Manually twisted and delivered intact. Cord insertion resembles vasa previa-sent for eval. Mother and baby skin to skin, stable and bonding. Laceration repaired as stated LABOR SUMMARY EDC: 03/19/2017 00:00 No. Babies in Womb: 1 Attempted: No Labor Anesthesia: Epidural LABOR INFORMATION Reason for Induction: Intrauterine Growth Retardation; Other Reason for Induction- Other: on Subutex Onset of Labor: 03/15/2017 10:15 Complete Dilatation: 03/15/2017 13:18 Cervical Ripening Agents: Cervidil Other Ripening Agents: Pitocin Oxytocin: Induction Group B Beta Strep: negative Antibiotics # of Doses: 0 Antibiotics Time of Last Dose: n/a Name of Antibiotic Given: n/a Steroids Given: None Reason Steroids Not Administered: Not Applicable MEMBRANES Membranes Rupture Method: Spontaneous Rupture of Membranes: 03/15/2017 10:15 Length of Rupture (hr): 5.23 Amniotic Fluid Color: Clear Amniotic Fluid Amount: Scant Amniotic Fluid Odor: Normal STAGES OF LABOR Stage 1 hr: 3 Stage 1 min: 3 Stage 2 hr: 2 Stage 2 min: 11 Stage 3 hr: 0 Stage 3 min: 15 Total Time in Labor hr: 5 Total Time in Labor min: 29 VAGINAL DELIVERY Episiotomy: None Laceration Extension #1: N/A Other Laceration: labial Laceration Repair: Yes Laceration Repair Note: left labial laceration hemostatic but repaired with 3-0 chromic on SH-well approximated Sponge Count Correct: N/A Sharps Count Correct: Yes CSECTION DELIVERY Primary Indication: N/A Other Primary Indication: n/a Secondary Indication: N/A Other Secondary Indication: n/a CSection Incidence: N/A Labor: N/A Elective: N/A CSection Incision: N/A CSection Incision- Other: n/a Other Sterilization Procedure: n/a BABY A INFORMATION Infant Delivery Date/Time: 03/15/2017 15:29 Method of Delivery: Vaginal Born in Route : No : N/A Forceps: N/A Vacuum Extraction: N/A Shoulder Dystocia : No PRESENTATION/POSITION BABY A Presentation: Cephalic Cephalic Presentation: Vertex Vertex Position: Right Occipital Anterior Breech Presentation: N/A PLACENTA INFORMATION BABY A Placenta Delivery Time : 03/15/2017 15:44 Placenta Method of Delivery: Manual Removal Placenta Status: Delivered SCORES BABY A Heart Rate 1 min: >100 bpm Resp Effort 1 min: Good Cry Reflex Irritability 1 min: Cough or Sneeze or Pulls Away Muscle Tone 1 min: Active Motion Color 1 min: Blue/Pale Resuscitation Effort 1 min: Tactile Stimulation SCORE 1 MIN: 8 Heart Rate 5 min: >100 bpm Resp Effort 5 min: Good Cry Reflex Irritability 5 min: Cough or Sneeze or Pulls Away Muscle Tone 5 min: Active Motion Color 5 min: Body [place], Extremities Blue Resuscitation Effort 5 min: Tactile Stimulation SCORE 5 MIN: 9 INFANT INFORMATION BABY A Gestational Age at Delivery: 39.3 Gestational Status: Full Term- 39- 40.6 Weeks Infant Outcome : Liveborn Infant Condition : Stable Infant Sex: Female IDENTIFICATION BABY A Infant Verification Date/Time: 03/15/2017 15:51 ID Band Number: [id number] Mother's Name Verified: Yes RN Verifying Infant: Hector Louis Additional Verifying Personnel: [facility] [place] [facility] WEIGHT/LENGTH BABY A Infant Birthweight (gm): 2270 Infant Weight (lb): 5 Infant Weight (oz): 0 Infant Length (in): 18.00 Infant Length (cm): 45.72 CORD INFORMATION BABY A No. Cord Vessels: 3 Nuchal Cord : N/A Cord Blood Taken: Yes-For Eval (Mom's Blood Type - or O+) Infant Suction: None ASSESSMENT BABY A Infant Complications: Multiple Late Decels; Multiple Variable Decels Physical Findings at Delivery: Within Normal Limits Respirations: Appears Normal Skin to Skin: Yes Skin to Skin Time (min): 15 Dog Or Animal Sitter/ALS Called : No Infant Care By: Amanda Schmidt RN Transferred To: Remains with Mother BABY B INFORMATION : N/A SIGNATURES Assignment: Destinee Birch MD Signature: with User ID: [email or web address] : with User ID: [email or web address]
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
[2017-03-15] MEDS: DOCUSATE SODIUM 100 MG CAPSULE PO SCH (18:52)
[2017-03-15] MEDS: FERROUS SULFATE 325 MG TABLET PO SCH (18:52)
[2017-03-15] MEDS ORDERED: INFLUENZA ADLT QUAD (36MOS+) 2017-18 VAC 0.5 ML SYR IM PRN (18:56)
[2017-03-15] MEDS: IBUPROFEN 800 MG TABLET PO SCH (22:22)
[2017-03-15] MEDS: FAMOTIDINE 20 MG TABLET PO SCH (22:23)
[2017-03-15] MEDS: NICOTINE 21 MG/24 HR PATCH.TD24 TD SCH (22:24)
[2017-03-16] MEDS: IBUPROFEN 800 MG TABLET PO SCH ×3 (05:29→22:47)
[2017-03-16] MEDS: METHADONE HCL 10 MG TABLET PO SCH ×3 (05:29→22:48)
[2017-03-16 07:41] LABS: HEMATOCRIT 28.8 % (36.0-47.0); HGB HCT DIFFERENCE 1.2; MEAN CORPUSCULAR HEMOGLOBIN 31.5 pg (27.0-33.4); MEAN CORPUSCULAR HGB CONC 34.8 g/dL (32.0-36.0); MEAN CORPUSCULAR VOLUME 90 fl (80-97); RED BLOOD COUNT 3.18 10^6/uL (3.72-5.28); RED CELL DISTRIBUTION WIDTH 13.6 % (11.5-14.0); WHITE BLOOD COUNT 11.8 10^3/uL (4.0-10.5)
[2017-03-16] MEDS: FERROUS SULFATE 325 MG TABLET PO SCH ×2 (09:34→17:47)
[2017-03-16] MEDS: PRENATAL VITAMIN W DHA CAPSULE PO SCH (09:34)
[2017-03-16] MEDS: SENNOSIDES/DOCUSATE 8.6-50 MG 1 EACH TABLET PO SCH (09:34)
[2017-03-16] MEDS: FAMOTIDINE 20 MG TABLET PO SCH ×2 (09:34→22:47)
[2017-03-16] MEDS: DOCUSATE SODIUM 100 MG CAPSULE PO SCH ×2 (09:35→17:47)
--- NOTE | 2017-03-16 09:57 | PDOC PROGRESS REPORT ---
Subjective-OB Subjective: Post Delivery Day: 21 year old. Denies any needs at this time s/p vaginal delivery followed by outside clinic for subutex methadone 10 mg po tid titrated to equivalent of subutex ambulating well offers no complaints d/c tomorrow Physical Exam (OB) Vital Signs: Temp Pulse Resp BP Pulse Ox 98.2 F 66 18 100/54 L 99 03/16/17 07:46 03/16/17 07:46 03/16/17 07:46 03/16/17 07:46 03/16/17 07:46 Intake & Output 03/15/17 03/16/17 03/17/17 06:59 06:59 06:59 Weight 64 kg - PIH/Pre-Eclampsia DTR's: 1 + Clonus: Negative Headache: Absent Epigastric Pain: No Visual Changes: No - Lochia Lochia Amount: Small 10-25 ml Lochia Color: Rubra/Red - Abdomen Description: Soft, Round Hernia Present: No Fundal Description: Firm, Midline Fundal Height: u/u - u/2 Objective-Diagnostic Laboratory: 03/16/17 07:32 03/16/17 07:32 WBC 11.8 H RBC 3.18 L Hgb 10.0 L D Hct 28.8 L MCV 90 MCH 31.5 MCHC 34.8 RDW 13.6 Plt Count 112 L
[2017-03-16 21:37] LABS: URINE BARBITURATES SCREEN NEGATIVE; URINE OPIATES LOW NEGATIVE; URINE PHENCYCLIDINE SCREEN NEGATIVE
[2017-03-16 21:44] LABS: URINE METHADONE SCREEN UNCONFIRMED POSITIVE
[2017-03-17] MEDS: METHADONE HCL 10 MG TABLET PO SCH (05:13)
[2017-03-17] MEDS: IBUPROFEN 800 MG TABLET PO SCH (05:13)
[2017-03-17 08:22] VITALS: BP 98/48
--- NOTE | 2017-03-17 08:51 | PDOC PROGRESS REPORT ---
Subjective-OB Subjective: Post Delivery Day: 21 year old. Denies any needs at this time. Physical Exam (OB) Vital Signs: Temp Pulse Resp BP Pulse Ox 98.5 F 59 L 16 98/48 L 97 03/17/17 07:32 03/17/17 07:32 03/17/17 07:32 03/17/17 07:32 03/17/17 07:32 Intake & Output 03/16/17 03/17/17 03/18/17 06:59 06:59 06:59 Intake Total 575 Balance 575 - PIH/Pre-Eclampsia DTR's: 1 + Clonus: Negative Headache: Absent Epigastric Pain: No Visual Changes: No - Lochia Lochia Amount: Scant < 10 ml Lochia Color: Rubra/Red - Abdomen Description: Soft, Round Hernia Present: No Bowel Sounds: Normoactive Flatus Presence: Present Stool: No Fundal Description: Firm, Midline Fundal Height: u/u - u/2 Objective-Diagnostic Laboratory: 03/16/17 07:32
--- NOTE | 2017-03-17 09:44 | PDOC DISCHARGE SUMMARY ---
Final Diagnosis Discharge Date: 03/17/17 - Final Diagnosis (1) Bipolar 1 disorder Is this a current diagnosis for this admission?: Yes (2) Delivery normal Is this a current diagnosis for this admission?: Yes (3) IUGR (intrauterine growth retardation), delivered, current hospitalization Is this a current diagnosis for this admission?: Yes (4) Marijuana abuse Is this a current diagnosis for this admission?: Yes (5) Opioid abuse Is this a current diagnosis for this admission?: Yes (6) Smoker Is this a current diagnosis for this admission?: Yes Discharge Data - Discharge Medication Prescriptions: Docusate Sodium [Colace 100 mg Capsule] 100 mg PO BID #30 capsule Ferrous Sulfate [Feosol 325 mg Tablet] 325 mg PO BID #60 tablet Home Medications: Buprenorphine HCl/Naloxone HCl [Suboxone 8 mg-2 mg Sl Film] 8 mg PO BID Vit Calc,Iron,Folic [ Vitamins] 1 tab PO DAILY 01/02/17 Docusate Sodium [Colace 100 mg Capsule] 100 mg PO BID #30 capsule 03/17/17 Ferrous Sulfate [Feosol 325 mg Tablet] 325 mg PO BID #60 tablet 03/17/17 Methadone HCl [Dolophine 10 mg Tablet] 10 mg PO Q8 tablet 03/17/17 Gestational Age: 39.3 wks Reason(s) for Admission: Induction of Labor, Other Admission Note: IUGR Procedures: Ultrasound Intrapartum Procedure(s): Spontaneous Vaginal Delivery Complication(s): Laceration-Labial Laceration-Degree: 1st - Data Baby 1 Female at 1 minute: 8 at 5 minutes: 9 Weight: 2.268 kg Home with Mother: No Complications: Yes - Drug exposure - Diagnosis Test Laboratory: Temp Pulse Resp BP Pulse Ox 98.5 F 59 L 16 98/48 L 97 03/17/17 07:32 03/17/17 07:32 03/17/17 07:32 03/17/17 07:32 03/17/17 07:32 03/14/17 03/15/17 03/16/17 09:20 07:25 07:32 RBC 4.01 3.18 L Hgb 12.4 10.0 L D Hct 36.0 28.8 L Urine Opiates Screen NEGATIVE 03/16/17 21:05 RBC Hgb Hct Urine Opiates Screen NEGATIVE - Discharge information/Instructions Discharge Activity: Activity As Tolerated, Balance Activity w/Rest, Pelvic Rest , Slowly Increase Activity, No tub bath Discharge Diet: Regular Disposition: HOME, SELF-CARE Follow up with: [facility] in: 4, Weeks
[2017-03-17] MEDS: NICOTINE 21 MG/24 HR PATCH.TD24 TD SCH (10:12)
[2017-03-17] MEDS: DOCUSATE SODIUM 100 MG CAPSULE PO SCH (10:12)
[2017-03-17] MEDS: PRENATAL VITAMIN W DHA CAPSULE PO SCH (10:12)
[2017-03-17] MEDS: FAMOTIDINE 20 MG TABLET PO SCH (10:13)
[2017-03-17] MEDS: FERROUS SULFATE 325 MG TABLET PO SCH (10:13)
[2017-03-17] MEDS: SENNOSIDES/DOCUSATE 8.6-50 MG 1 EACH TABLET PO SCH (10:13)
[2017-03-19 12:35] LABS: METHADONE CONFIRMATION URINE Positive (.)
== END 2017-03-17 13:23 | disposition home or self-care (01) | DRG 767 ==
LOC: LR 08:37 → 2S 03-15 17:50
PROVIDERS: ADMIT Obstetrics & Gynecology; ATTEND Obstetrics & Gynecology
PROC: 10E0XZZ Delivery of Products of Conception, External Approach (ICD-10-PCS; principal; 2017-03-15)
PROC: 10D17Z9 Manual Extraction of Products of Conception, Retained, Via Natural or Artificial Opening (ICD-10-PCS; 2017-03-15)
PROC: 0UQMXZZ Repair Vulva, External Approach (ICD-10-PCS; 2017-03-15)
DX: O36.5930 Maternal care for other known or suspected poor fetal growth, third trimester, not applicable or unspecified (principal); O99.324 Drug use complicating childbirth; O76 Abnormality in fetal heart rate and rhythm complicating labor and delivery; O73.1 Retained portions of placenta and membranes, without hemorrhage; O69.4XX0 Labor and delivery complicated by vasa previa, not applicable or unspecified; O99.334 Smoking (tobacco) complicating childbirth; F17.210 Nicotine dependence, cigarettes, uncomplicated; O99.344 Other mental disorders complicating childbirth; F11.21 Opioid dependence, in remission; O77.0 Labor and delivery complicated by meconium in amniotic fluid; O70.0 First degree perineal laceration during delivery; F31.9 Bipolar disorder, unspecified; Z3A.39 39 weeks gestation of pregnancy; Z37.0 Single live birth
CPT/HCPCS: 36415; 80307; 81005; 85025; 85027; 86592; 86850; 86900; 86901; 88307; G0480; J2590; J3490

== ENCOUNTER 2017-03-31 19:06 | Emergency (ER) | payer MEDICAID ==
[2017-03-31 19:12] VITALS: BP 116/63
[2017-03-31] MEDS ORDERED: ACETAMINOPHEN 325 MG TABLET PO ONE (19:24)
--- NOTE | 2017-03-31 19:26 | ER Document Report ---
ED General - General Chief Complaint: Cold Symptoms Stated Complaint: COLD SYMPTOMS Time Seen by Provider: 03/31/17 19:20 TRAVEL OUTSIDE OF THE [place] IN LAST 30 DAYS: No - HPI Patient complains to provider of: Fever, cough, myalgias, flu symptoms, no flu shot Notes: Normally healthy young girl presents with fever myalgias cough sore throat. 3 days. Febrile today 102 at home. Took ibuprofen approximately 4 hours ago still febrile. Able to eat and drink without issue Patient has history of Pneumonia - Related Data Allergies/Adverse Reactions: Bee Sting Kit *RETIRED-05/12/10 [Bee Sting Kit] Allergy (Verified 03/31/17 19:08 ) hydrocodone [Hydrocodone] Allergy (Verified 03/31/17 19:08) Hives Home Medications: Current Home Medications Albuterol Sulfate [Proair HFA] 2 puff .ROUTE Q4H PRN 03/31/17 [History] Buprenorphine HCl [Subutex 8 mg Sublingual Tablet] 8 mg PO BID 03/31/17 [History ] Vit Calc,Iron,Folic [ Vitamins] 1 tab PO DAILY 03/31/17 [ History] Past Medical History - Social History Smoking Status: Unknown if Ever Smoked Family History: Reviewed & Not Pertinent Pulmonary Medical History: Reports: Hx Asthma, Hx Bronchitis, Hx Pneumonia Neurological Medical History: Reports: Hx Migraine Endocrine Medical History: Reports: Hx Hypothyroidism Renal/ Medical History: Reports: Hx Ovarian Cysts, Hx Pelvic Inflammatory Disease - Chlamydia. Denies: Hx Peritoneal Dialysis Musculoskeltal Medical History: Reports Hx Musculoskeletal Trauma Psychiatric Medical History: Reports: Hx Bipolar Disorder, Hx Depression, Hx Obsessive Compulsive Disorder Traumatic Medical History: Reports: Hx Fractures - Right wrist and left arm 2 and right ankle Past Surgical History: Reports: Hx Adenoidectomy, Hx Dilation and Curettage, Hx Gynecologic Surgery - D & C, Hx Oral Surgery - [place] teeth, Hx Tonsillectomy - Immunizations Immunizations up to date: Yes Hx Diphtheria, Pertussis, Tetanus Vaccination: Yes Review of Systems - Review of Systems Constitutional: Fever EENT: No symptoms reported Cardiovascular: No symptoms reported Respiratory: Cough, Sputum Gastrointestinal: No symptoms reported Genitourinary: No symptoms reported Female Genitourinary: No symptoms reported Musculoskeletal: No symptoms reported Skin: No symptoms reported Hematologic/Lymphatic: No symptoms reported Neurological/Psychological: No symptoms reported Physical Exam - Vital signs Vitals: Temp Pulse Resp BP Pulse Ox 102.8 F H 106 H 16 116/63 99 03/31/17 19:11 03/31/17 19:11 03/31/17 19:11 03/31/17 19:11 03/31/17 19:11 Interpretation: Normal - General General appearance: Appears well, Alert - HEENT Head: Normocephalic, Atraumatic Eyes: Normal Pupils: PERRL - Respiratory Respiratory status: No respiratory distress Chest status: Nontender Breath sounds: Normal Chest palpation: Normal - Cardiovascular Rhythm: Regular Heart sounds: Normal auscultation Murmur: No - Abdominal Inspection: Normal Distension: No distension Bowel sounds: Normal Tenderness: Nontender Organomegaly: No organomegaly - Back Back: Normal, Nontender - Extremities General upper extremity: Normal inspection, Nontender, Normal color, Normal ROM , Normal temperature General lower extremity: Normal inspection, Nontender, Normal color, Normal ROM , Normal temperature, Normal weight bearing. No: Jimena's sign - Neurological Neuro grossly intact: Yes Cognition: Normal Orientation: AAOx4 Thom Coma Scale Eye Opening: Spontaneous Gilbert Coma Scale Verbal: Oriented Thom Coma Scale Motor: Obeys Commands Thom Coma Scale Total: 15 Speech: Normal Motor strength normal: LUE, RUE, LLE, RLE Sensory: Normal - Psychological Associated symptoms: Normal affect, Normal mood - Skin Skin Temperature: Warm Skin Moisture: Dry Skin Color: Normal Course - Re-evaluation Re-evalutation: 03/31/17 20:03 Pleasant young girl presents with fever cough and sputum production. Concern for pneumonia. Chest x-ray reviewed reveals pneumonia. Patient be started on doxycycline in the emergency department. Will be given prescription for 10 days of doxycycline to fill tomorrow morning. - Vital Signs Vital signs: Temp Pulse Resp BP Pulse Ox 102.8 F H 106 H 16 116/63 99 03/31/17 19:11 03/31/17 19:11 03/31/17 19:11 03/31/17 19:11 03/31/17 19:11 - Diagnostic Test Radiology reviewed: Reports reviewed Discharge - Discharge Clinical Impression: Pneumonia Qualifiers: Pneumonia type: due to unspecified organism Laterality: right Lung location: middle lobe of lung Qualified Code(s): J18.1 - Lobar pneumonia, unspecified organism Condition: Stable Disposition: HOME, SELF-CARE Instructions: Pneumonia ([facility]) Additional Instructions: See her PCP as soon as possible. Do not breast-feed while taking her antibiotics. Return if anything changes
--- NOTE | 2017-03-31 19:50 | RADIOLOGY REPORT (SQ) ---
EXAM DESCRIPTION: CHEST PA/LAT COMPLETED DATE/TIME: 03/31/2017 7:41 pm REASON FOR STUDY: cough COMPARISON: 01/05/2013. EXAM PARAMETERS: NUMBER OF VIEWS: two views TECHNIQUE: Digital Frontal and Lateral radiographic views of the chest acquired. RADIATION DOSE: NA LIMITATIONS: none FINDINGS: LUNGS AND PLEURA: Right middle lobe infiltrate. Faint basilar density. No pleural effusi on. No pneumothorax. MEDIASTINUM AND HILAR STRUCTURES: No masses or contour abnormalities. HEART AND VASCULAR STRUCTURES: Heart normal size. No evidence for failure. BONES: No acute findings. HARDWARE: None in the chest. OTHER: No other significant finding. IMPRESSION: RIGHT MIDDLE LOBE INFILTRATE CONSISTENT WITH PNEUMONIA. THERE IS FAINT BASILAR DENSITY WHICH COULD REPRESENT AN EARLY AREA OF PNEUMONIA WELL. TECHNICAL DOCUMENTATION: JOB ID: [id number] [email or web address] All Rights Reserved
[2017-03-31] MEDS ORDERED: DOXYCYCLINE HYCLATE 100 MG TABLET PO ONE (20:01)
== END 2017-03-31 20:13 | disposition home or self-care (01) ==
LOC: ER 19:06
DX: J18.1 Lobar pneumonia, unspecified organism (principal); R50.9 Fever, unspecified; M79.1 Myalgia; R05 Cough; J02.9 Acute pharyngitis, unspecified; J45.909 Unspecified asthma, uncomplicated; Z88.5 Allergy status to narcotic agent
CPT/HCPCS: 99283; 71046; J3490 ×2

== ENCOUNTER → 2018-01-23 | Outpatient (CLI) | payer MEDICAID ==
[2018-01-23 19:32] LABS: BACTERIA (WET MOUNT) 3+ BACTERIA SEEN; EPITHELIALS (WET MOUNT) 4+ EPITHELIALS SEEN; T.VAGINALIS (WET MOUNT) NO TRICHOMONAS SEEN; WBCS (WET MOUNT) FEW WBCS SEEN; YEAST (WET MOUNT) NO YEAST SEEN
== END ==
LOC: LAB 19:15
PROVIDERS: ATTEND Nurse Practitioner Family
DX: N89.8 Other specified noninflammatory disorders of vagina (principal)
CPT/HCPCS: 87210

== ENCOUNTER 2018-03-31 07:13 | Emergency (ER) | payer MEDICAID ==
[2018-03-31 07:21] VITALS: BP 105/66
[2018-03-31] MEDS ORDERED: LIDOCAINE 5% (700 MG) TRANSDERMAL ADH..PATCH TP ONE (08:21)
[2018-03-31] MEDS ORDERED: IBUPROFEN 800 MG TABLET PO ONE (08:21)
--- NOTE | 2018-03-31 08:23 | ER Document Report ---
HPI - HPI Patient complains to provider of: Low back pain Time Seen by Provider: 03/31/18 07:41 Onset: Other Onset/Duration: Persistent - 2 days ago Quality of pain: Achy Pain Level: 2 Context: Patient states she was moving furniture 2 days ago and pulled her lower back. Patient complains of persistent low back pain since then. Patient denies any fever. Patient denies urinary symptoms. Patient denies any radiculopathy or paresthesia. Associated Symptoms: Other - Low back pain. denies: Fever Exacerbated by: Movement Relieved by: Denies Similar symptoms previously: No Recently seen / treated by doctor: No - ROS ROS below otherwise negative: Yes Systems Reviewed and Negative: Yes All other systems reviewed and negative - CONSTITUTIONAL Constitutional: DENIES: Fever, Chills - EENT EENT: DENIES: Sore Throat, Ear Pain, Eye problems - NEURO Neurology: DENIES: Weakness - REPRODUCTIVE LMP: 03/01/18 Reproductive: DENIES: : - MUSCULOSKELETAL Musculoskeletal: REPORTS: Back Pain. DENIES: Extremity pain - DERM Skin Color: Normal Skin Problems: None Past Medical History - General Information source: Patient - Social History Smoking Status: Current Every Day Smoker Chew tobacco use (# tins/day): No Frequency of alcohol use: None Drug Abuse: None Occupation: none Lives with: Family Family History: Reviewed & Not Pertinent Patient has suicidal ideation: No Patient has homicidal ideation: No Pulmonary Medical History: Reports: Hx Asthma, Hx Bronchitis, Hx Pneumonia Neurological Medical History: Reports: Hx Migraine Endocrine Medical History: Reports: Hx Hypothyroidism Renal/ Medical History: Reports: Hx Ovarian Cysts, Hx Pelvic Inflammatory Disease - Chlamydia. Denies: Hx Peritoneal Dialysis Musculoskeletal Medical History: Reports Hx Musculoskeletal Trauma Psychiatric Medical History: Reports: Hx Bipolar Disorder, Hx Depression, Hx Obsessive Compulsive Disorder Traumatic Medical History: Reports: Hx Fractures - Right wrist and left arm 2 and right ankle Past Surgical History: Reports: Hx Adenoidectomy, Hx Dilation and Curettage, Hx Gynecologic Surgery - D & C, Hx Oral Surgery - [place] teeth, Hx Tonsillectomy - Immunizations Immunizations up to date: Yes Hx Diphtheria, Pertussis, Tetanus Vaccination: Yes Vertical Provider Document - CONSTITUTIONAL Agree With Documented VS: Yes Exam Limitations: No Limitations General Appearance: WD/WN, No Apparent Distress Notes: PHYSICAL EXAMINATION: GENERAL: Well-appearing, well-nourished and in no acute distress. HEAD: Atraumatic, normocephalic. EYES: sclera clear, anicteric, conjunctiva are normal. ENT: nares patent, Moist mucous membranes. NECK: Normal range of motion, supple no lymphadenopathy LUNGS: respirations unlabored HEART: Regular rate and rhythm without murmurs EXTREMITIES: Normal range of motion, no pitting or edema. No cyanosis. Gait normal, pt ambulates without difficulty BACK: Left lower lumbar paraspinal tenderness, no midline tenderness, no deformities or step-offs. No CVA tenderness. NEUROLOGICAL: Cranial nerves grossly intact. Normal speech, normal gait. No saddle anesthesia. PSYCH: Normal mood, normal affect. SKIN: Warm, Dry, normal turgor, no rashes or lesions noted. - INFECTION CONTROL TRAVEL OUTSIDE OF THE [place] IN LAST 30 DAYS: No Course - Re-evaluation Re-evalutation: 03/31/18 08:21 The patient presents with low back pain without signs of spinal cord compression, cauda equina syndrome, infection, aneurysm, or other serious etiology. The patient is neurologically intact. Given the extremely risk of these diagnoses further testing and evaluation for these possibilities does not appear to be indicated at this time. Patient has been instructed to return if the symptoms worsen or change in any way. - Vital Signs Vital signs: Temp Pulse Resp BP Pulse Ox 97.8 F 87 16 105/66 100 03/31/18 07:20 03/31/18 07:20 03/31/18 07:20 03/31/18 07:20 03/31/18 07:20 Discharge - Discharge Clinical Impression: Low back strain Qualifiers: Encounter type: initial encounter Qualified Code(s): S39.012A - Strain of muscle, fascia and tendon of lower back, initial encounter Condition: Stable Disposition: HOME, SELF-CARE Instructions: Ice Packs ([facility]), Low Back Pain ([facility]), Muscle Relaxers ([facility]), Warm Packs ([facility]) Additional Instructions: Return immediately for any new or worsening symptoms Followup with your primary care provider, call tomorrow to make a followup appointment Prescriptions: Cyclobenzaprine HCl [Flexeril 10 Mg Tablet] 10 mg PO TID #15 tablet Naproxen [Naprosyn 250 Nmg Tablet] 1 tab PO BID #14 tablet Referrals: SANDY,KARLIE A, [facility] [Primary Care Provider] - Follow up as needed
== END 2018-03-31 08:41 | disposition home or self-care (01) ==
LOC: ER 07:13
DX: S39.012A Strain of muscle, fascia and tendon of lower back, initial encounter (principal); X58.XXXA Exposure to other specified factors, initial encounter; F17.200 Nicotine dependence, unspecified, uncomplicated; J45.909 Unspecified asthma, uncomplicated
CPT/HCPCS: 99283; J3490 ×2

== ENCOUNTER 2018-09-26 09:25 | Emergency (ER) | payer MEDICAID ==
[2018-09-26] MEDS ORDERED: DIAZEPAM 5 MG TABLET PO ONE (10:00)
[2018-09-26] MEDS ORDERED: CYCLOBENZAPRINE HCL 10 MG TABLET PO ONE (10:00)
--- NOTE | 2018-09-26 10:08 | ER Document Report ---
ED General - General Stated Complaint: LEFT FLANK PAIN Time Seen by Provider: 09/26/18 09:46 Primary Care Provider: KARLIE DELGADO FNP-C [Primary Care Provider] - Follow up as needed Mode of Arrival: Ambulatory Information source: Patient TRAVEL OUTSIDE OF THE [place] IN LAST 30 DAYS: No - HPI Notes: Patient is a 23-year-old female history of prior drug abuse states she has been clean for a year but comes in with report of 3-week history of left flank pain with spasms. No history of kidney stones or back injury she can recall. The patient has been taking ibuprofen regularly for the discomfort, now she reports swelling that she is noted in the feet greater than in the hands. No fever, chest pain, difficulty breathing, nausea, vomiting. No significant abdominal pain. The patient does report chronic constipation which is somewhat worse now than prior. The patient takes only Subutex and ibuprofen by her report. - Related Data Allergies/Adverse Reactions: Bee Sting Kit *RETIRED-05/12/10 [Bee Sting Kit] Allergy (Verified 03/31/17 19:08) hydrocodone [Hydrocodone] Allergy (Verified 03/31/17 19:08) Hives Past Medical History - General Information source: Patient - Social History Smoking Status: Current Every Day Smoker Frequency of alcohol use: None Drug Abuse: Other - Prior IV drug use, patient denies for the last year. Lives with: Family Family History: Reviewed & Not Pertinent Pulmonary Medical History: Reports: Hx Asthma, Hx Bronchitis, Hx Pneumonia Neurological Medical History: Reports: Hx Migraine Endocrine Medical History: Reports: Hx Hypothyroidism Renal/ Medical History: Reports: Hx Ovarian Cysts, Hx Pelvic Inflammatory Disease - Chlamydia. Denies: Hx Peritoneal Dialysis Musculoskeletal Medical History: Reports Hx Musculoskeletal Trauma Psychiatric Medical History: Reports: Hx Bipolar Disorder, Hx Depression, Hx Obsessive Compulsive Disorder Traumatic Medical History: Reports: Hx Fractures - Right wrist and left arm 2 and right ankle Past Surgical History: Reports: Hx Adenoidectomy, Hx Dilation and Curettage, Hx Gynecologic Surgery - D & C, Hx Oral Surgery - [place] teeth, Hx Tonsillectomy - Immunizations Immunizations up to date: Yes Hx Diphtheria, Pertussis, Tetanus Vaccination: Yes Review of Systems - Review of Systems -: Yes All other systems reviewed and negative Physical Exam - Vital signs Vitals: Temp Pulse Resp BP Pulse Ox 98.5 F 65 18 106/48 L 100 09/26/18 10:22 09/26/18 10:09/26/18 10:09/26/18 10:09/26/18 10:22 - Notes Notes: PHYSICAL EXAMINATION: GENERAL: Well-appearing, well-nourished and in no acute distress. HEAD: Atraumatic, normocephalic. EYES: Pupils equal round and reactive to light, extraocular movements intact, conjunctiva are normal. ENT: Nares patent, oropharynx clear without exudates. Moist mucous membranes. NECK: Normal range of motion, supple without lymphadenopathy LUNGS: Breath sounds clear to auscultation bilaterally and equal. No wheezes rales or rhonchi. HEART: Regular rate and rhythm without murmurs ABDOMEN: Soft, nontender, nondistended abdomen. No guarding, no rebound. No masses appreciated. Female : deferred Musculoskeletal: Normal range of motion, no pitting. No cyanosis. Pain left CVA region and paraspinal. No midline significant pain or erythema. Trace bilateral lower extremity edema. Negative Homans. No palpable cord. NEUROLOGICAL: Cranial nerves grossly intact. Normal speech, normal gait. Normal sensory, motor exams. No saddle anesthesia or cauda equina syndrome. There is pain reproduction on left lower extremity straight leg raise test PSYCH: Normal mood, normal affect. SKIN: Warm, Dry, normal turgor, no rashes or lesions noted. Multiple scars from previous IV drug abuse track garcia. No cellulitis or more recent track garcia appreciated. Course - Re-evaluation Re-evalutation: 09/26/18 10:10 Patient was given Flexeril and Valium 09/26/18 15:10 Patient had adequate relief after pain medication. The patient was noted to have splenomegaly, of undetermined age and etiology. A Monospot was negative. There is no significant lymphomatous state or other abnormality noted on patient's CT scan. Patient has a very mild thrombocytopenia with platelet count 116, but this is not much different than a previous value 2 years ago of 112. Patient was advised to stop using ibuprofen and anti-inflammatories related to the mild swelling she is describing. - Vital Signs Vital signs: Temp Pulse Resp BP Pulse Ox 98.5 F 65 18 106/48 L 100 09/26/18 10:09/26/18 10:09/26/18 10:22 09/26/18 10:22 09/26/18 10:22 - Laboratory Result Diagrams: 09/26/18 10:53 09/26/18 10:53 Laboratory results interpreted by me: 09/26/18 09/26/18 10:53 10:53 Hgb 10.1 L Hct 30.8 L MCV 78 L MCH 25.5 L RDW 16.8 H Plt Count 116 L Eosinophils % 6.3 H Creatinine 0.40 L Discharge - Discharge Clinical Impression: Splenomegaly Constipation Qualifiers: Constipation type: slow transit constipation Qualified Code(s): K59.01 - Slow transit constipation Condition: Stable Disposition: HOME, SELF-CARE Instructions: Constipation (OM) Additional Instructions: Drink plenty of fluids. You will need a follow-up ultrasound within 1 month to evaluate for the splenomegaly. Take miralax as directed daily for constipation. Stop taking ibuprofen and anti-inflammatories, as it may be contributing to your swelling. Prescriptions: Cyclobenzaprine HCl [Flexeril 10 mg Tablet] 10 mg PO TIDP PRN #20 tab PRN Reason: Polyethylene Glycol 3350 [Miralax] 1 cap PO DAILY #527 powder Referrals: KARLIE DELGADO FNP-C [Primary Care Provider] - Follow up in 1 week
[2018-09-26 11:27] LABS: ABSOLUTE BASOPHILS # (AUTO) 0.1 10^3/uL (0.0-0.2); ABSOLUTE EOSINOPHILS # (AUTO) 0.4 10^3/uL (0.0-0.6); ABSOLUTE LYMPHOCYTES (AUTO) 1.9 10^3/uL (0.5-4.7); ABSOLUTE MONOCYTES (AUTO) 0.4 10^3/uL (0.1-1.4); ABSOLUTE NEUT (AUTO) 3.6 10^3/uL (1.7-8.2); BASOPHILS % (AUTO) 0.9 % (0-2); EOSINOPHILS % (AUTO) 6.3 % (0-6); HEMATOCRIT 30.8 % (36.0-47.0); HEMOGLOBIN 10.1 g/dL (12.0-15.5); LYMPHOCYTES % (AUTO) 30.5 % (13-45); MEAN CORPUSCULAR HEMOGLOBIN 25.5 pg (27.0-33.4); MEAN CORPUSCULAR HGB CONC 32.9 g/dL (32.0-36.0); MEAN CORPUSCULAR VOLUME 78 fl (80-97); PLATELET COUNT 116 10^3/uL (150-450); RED BLOOD COUNT 3.98 10^6/uL (3.72-5.28); RED CELL DISTRIBUTION WIDTH 16.8 % (11.5-14.0); SEGMENTED NEUTROPHILS % (AUTO) 56.3 % (42-78); TOTAL CELLS COUNTED % (AUTO) 100 %; WHITE BLOOD COUNT 6.3 10^3/uL (4.0-10.5)
[2018-09-26 11:38] LABS: ALANINE AMINOTRANSFERASE 23 U/L (9-52); ALBUMIN 3.9 g/dL (3.5-5.0); ALKALINE PHOSPHATASE 81 U/L (38-126); ANION GAP 6 (5-19); ASPARTATE AMINO TRANSFERASE 24 U/L (14-36); BILIRUBIN,DIRECT 0.3 mg/dL (0.0-0.4); BILIRUBIN,TOTAL 0.4 mg/dL (0.2-1.3); BLOOD UREA NITROGEN 20 mg/dL (7-20); CALCIUM 9.3 mg/dL (8.4-10.2); CARBON DIOXIDE 26 mmol/L (22-30); CHLORIDE 107 mmol/L (98-107); GLUCOSE 99 mg/dL (75-110); LIPASE 74.6 U/L (23-300); POTASSIUM 4.5 mmol/L (3.6-5.0); SODIUM 139.4 mmol/L (137-145)
[2018-09-26 12:04] LABS: APPEARANCE,URINE SLIGHTLY-CLOUDY; BILIRUBIN,URINE NEGATIVE (NEGATIVE); COLOR,URINE YELLOW; GLUCOSE, URINE NEGATIVE (NEGATIVE); KETONES,URINE NEGATIVE (NEGATIVE); LEUKOCYTE ESTERASE,URINE NEGATIVE (NEGATIVE); NITRITE,URINE NEGATIVE (NEGATIVE); PROTEIN,URINE NEGATIVE (NEGATIVE); URINE SPECIFIC GRAVITY 1.018; UROBILINOGEN,URINE NEGATIVE mg/dL (<2.0)
[2018-09-26 12:15] LABS: URINE AMPHETAMINES SCREEN UNCONFIRMED POSITIVE; URINE BARBITURATES SCREEN NEGATIVE; URINE BENZODIAZEPINES SCREEN NEGATIVE; URINE COCAINE SCREEN NEGATIVE; URINE MARIJUANA (THC) SCREEN UNCONFIRMED POSITIVE; URINE METHADONE SCREEN NEGATIVE; URINE PHENCYCLIDINE SCREEN NEGATIVE
--- NOTE | 2018-09-26 13:02 | RADIOLOGY REPORT (SQ) ---
EXAM DESCRIPTION: CT ABD/PELVIS NO ORAL OR IV COMPLETED DATE/TIME: 09/26/2018 12:31 pm REASON FOR STUDY: L flank pain COMPARISON: None. TECHNIQUE: CT scan of the abdomen and pelvis performed without intravenous or oral contrast. Images reviewed with lung, soft tissue, and bone windows. Reconstructed coronal and sagittal MPR images revi ewed. All images stored on PACS. All CT scanners at this facility use dose modulation, iterative reconstruction, and/or weight based d osing when appropriate to reduce radiation dose to as low as reasonably achievable (ALARA). [facility]: Dose Right [facility]: CareDose [facility]: Dose Right [facility]: Teradose 4D [facility]: [employer] RADIATION DOSE: CT Rad equipment meets quality standard of care and radiation dose reduction techniq ues were employed. CTDIvol: 4.8 mGy. DLP: 232 mGy-cm.mGy. LIMITATIONS: None. FINDINGS: LOWER CHEST: Bandlike scarring or atelectasis of the left lung base. NON-CONTRASTED LIVER, SPLEEN, ADRENALS: Evaluation limited by lack of IV contrast. No identified sign ificant masses. Splenomegaly, maximum coronal span 16.0 cm. PANCREAS: No masses. No peripancreatic inflammatory changes. GALLBLADDER: No identified stones by CT criteria. No inflammatory changes to suggest cholecystitis. RIGHT KIDNEY AND URETER: No suspicious masses. Assessment limited by lack of IV contrast. No signif icant calcifications. No hydronephrosis or hydroureter. LEFT KIDNEY AND URETER: No suspicious masses. Assessment limited by lack of IV contrast. No signifi cant calcifications. No hydronephrosis or hydroureter. AORTA AND RETROPERITONEUM: No aneurysm. No retroperitoneal masses or adenopathy. BOWEL AND PERITONEAL CAVITY: No obvious masses or inflammatory changes. No free fluid. There is a ve ry redundant colon with a large burden of stool and dense stool balls in the right hemicolon. APPENDIX: Not clearly visualized. PELVIS, BLADDER, AND ABDOMINAL WALL:No abnormal masses. No free fluid. Bladder normal. BONES: No significant findings. OTHER: No other significant finding. IMPRESSION: 1. Splenomegaly, maximum span 16 cm. 2. There is a very redundant colon with a large burden of stool and dense stool balls in the right h emicolon. The appendix is not clearly visualized. COMMENT: Quality ID # [id number]: Final reports with documentation of one or more dose reduction techniques (e.g., Automated exposure control, adjustment of the mA and/or kV according to patient size, use of iterative reconstruction technique) TECHNICAL DOCUMENTATION: JOB ID: [id number] [email or web address]- All Rights Reserved Reading location - IP/workstation name: [email or web address]
[2018-09-26 13:35] LABS: CHLAM PCR NOT DETECTED (NOT DETECT)
[2018-09-26] MEDS ORDERED: MAGNESIUM CITRATE 296 ML BOTTLE PO ONE (15:08)
--- NOTE | 2018-09-26 18:12 | RADIOLOGY REPORT (SQ) ---
EXAM DESCRIPTION: U/S ABDOMEN LIMITED W/O DOP COMPLETED DATE/TIME: 09/26/2018 5:43 pm REASON FOR STUDY: enlarged spleen COMPARISON: None. TECHNIQUE: Dynamic and static grayscale images acquired of the abdomen and recorded on PACS. Weso karen selected color Doppler and spectral images recorded. LIMITATIONS: None. FINDINGS: Limited imaging the left upper quadrant shows splenomegaly. The spleen measures 14.2 cm. The spleen is homogeneous. The left kidney is normal and measures 9.2 cm. IMPRESSION: Splenomegaly. TECHNICAL DOCUMENTATION: JOB ID: [id number] [email or web address]- All Rights Reserved Reading location - IP/workstation name: [email or web address]
[2018-09-26 18:46] VITALS: BP 94/48
== END 2018-09-26 18:45 | disposition home or self-care (01) ==
LOC: ER 09:25
DX: K59.01 Slow transit constipation (principal); R16.1 Splenomegaly, not elsewhere classified; R60.0 Localized edema; D69.6 Thrombocytopenia, unspecified; J45.909 Unspecified asthma, uncomplicated; Z79.891 Long term (current) use of opiate analgesic; Z79.1 Long term (current) use of non-steroidal anti-inflammatories (NSAID); F17.200 Nicotine dependence, unspecified, uncomplicated
CPT/HCPCS: 99284; 36415; 83690; 85025; 81025; 86308; 80053; 81001; 86701; 80307; 87491; 87591; 83880; 76705; 74176; J3490 ×3

== ENCOUNTER 2018-10-02 12:20 | Emergency (ER) | payer MEDICAID ==
[2018-10-02 12:33] VITALS: BP 106/74
--- NOTE | 2018-10-02 13:29 | ER Document Report ---
ED Medical Screen (RME) - General Chief Complaint: Upper Abdominal Pain Stated Complaint: LEFT UPPER QUADRANT PAIN Time Seen by Provider: 10/02/18 13:28 Primary Care Provider: KARLIE DELGADO FNP-C [Primary Care Provider] - Follow up as needed Mode of Arrival: Ambulatory Information source: Patient Notes: 23-year-old female presented to ED for pain to the left upper quadrant. She states she was seen last week for an enlarged spleen. She states after she was seen she gave herself IV Percocet. She states the pain is much worse today. She states she has an appointment to follow-up with oncology. She states they told her that she needed to come to the emergency room right away if she was having a fever and increase in pain. She is here for the increase in pain. She states that the temperature was 101 while in the EMS. She was afebrile in the emergency room. I have greeted and performed a rapid initial assessment of this patient. A comprehensive ED assessment and evaluation of the patient, analysis of test results and completion of medical decision making process will be conducted by an additional ED providers. Dictation of this chart was performed using voice recognition software; therefore, there may be some unintended grammatical errors. TRAVEL OUTSIDE OF THE [place] IN LAST 30 DAYS: No - Related Data Allergies/Adverse Reactions: Bee Sting Kit *RETIRED-05/12/10 [Bee Sting Kit] Allergy (Verified 10/02/18 12:21) hydrocodone [Hydrocodone] Allergy (Verified 10/02/18 12:21) Hives Past Medical History - Social History Frequency of alcohol use: None Drug Abuse: Prescription drugs Family history: Reviewed & Not Pertinent Pulmonary Medical History: Reports: Hx Asthma, Hx Bronchitis, Hx Pneumonia Neurological Medical History: Reports: Hx Migraine Endocrine Medical History: Reports: Hx Hypothyroidism Renal/ Medical History: Reports: Hx Ovarian Cysts, Hx Pelvic Inflammatory Disease - Chlamydia. Denies: Hx Peritoneal Dialysis Musculoskeltal Medical History: Reports Hx Musculoskeletal Trauma Psychiatric Medical History: Reports: Hx Bipolar Disorder, Hx Depression, Hx Obsessive Compulsive Disorder Traumatic Medical History: Reports: Hx Fractures - Right wrist and left arm 2 and right ankle Past Surgical History: Reports: Hx Adenoidectomy, Hx Dilation and Curettage, Hx Gynecologic Surgery - D & C, Hx Oral Surgery - [place] teeth, Hx Tonsillectomy - Immunizations Immunizations up to date: Yes Hx Diphtheria, Pertussis, Tetanus Vaccination: Yes History of Influenza Vaccine for 12/2016 - 05/2017 Season: No Physical Exam - Vital signs Vitals: Temp Pulse Resp BP Pulse Ox 99.9 F 110 H 20 106/74 100 10/02/18 12:31 10/02/18 12:31 10/02/18 12:31 10/02/18 12:31 10/02/18 12:31 Course - Vital Signs Vital signs: Temp Pulse Resp BP Pulse Ox 99.9 F 110 H 20 106/74 100 10/02/18 12:31 10/02/18 12:31 10/02/18 12:31 10/02/18 12:31 10/02/18 12:31 Doctor's Discharge - Discharge Referrals: KARLIE DELGADO FNP-C [Primary Care Provider] - Follow up as needed
[2018-10-02 14:18] LABS: APPEARANCE,URINE SLIGHTLY HAZY; BILIRUBIN,URINE NEGATIVE (NEGATIVE); COLOR,URINE YELLOW; GLUCOSE, URINE NEGATIVE (NEGATIVE); KETONES,URINE NEGATIVE (NEGATIVE); LEUKOCYTE ESTERASE,URINE NEGATIVE (NEGATIVE); NITRITE,URINE NEGATIVE (NEGATIVE); PROTEIN,URINE 30 mg/dL (NEGATIVE); URINE SPECIFIC GRAVITY 1.018; UROBILINOGEN,URINE NEGATIVE mg/dL (<2.0)
[2018-10-02 14:34] LABS: URINE AMPHETAMINES SCREEN UNCONFIRMED POSITIVE; URINE BARBITURATES SCREEN NEGATIVE; URINE BENZODIAZEPINES SCREEN NEGATIVE; URINE COCAINE SCREEN NEGATIVE; URINE MARIJUANA (THC) SCREEN UNCONFIRMED POSITIVE; URINE METHADONE SCREEN NEGATIVE; URINE PHENCYCLIDINE SCREEN NEGATIVE
== END 2018-10-02 15:00 | disposition left against medical advice (07) ==
LOC: ER 12:20
DX: R10.12 Left upper quadrant pain (principal); J45.909 Unspecified asthma, uncomplicated; Z53.20 Procedure and treatment not carried out because of patient's decision for unspecified reasons; Z88.5 Allergy status to narcotic agent
CPT/HCPCS: 80307; 81001; 87086; 99281

== ENCOUNTER 2019-11-05 20:02 | Emergency (ER) | payer MEDICAID ==
--- NOTE | 2019-11-05 22:16 | ER Document Report ---
ED Medical Screen (RME) - General Chief Complaint: Hand Swelling Stated Complaint: HAND INJURY/SWELLING Notes: 24-year-old female presenting with left hand pain and swelling after she thinks she cut her on a yard tool approximately 9 days ago. It was initially a small cut which she put some salve on. This morning she woke up and it became very red and inflamed. She has pain with flexion of ring finger. Hand is swollen. DIP of left index finger is warm, tender. No fevers, chills or additional symptoms. General: Alert, oriented Skin: Left ring finger is warm, tender, left hand swollen I have greeted and performed a rapid initial assessment of this patient. A comprehensive ED assessment and evaluation of the patient, analysis of test results and completion of medical decision making process will be conducted by an additional ED providers. TRAVEL OUTSIDE OF THE [place] IN LAST 30 DAYS: No - Related Data Allergies/Adverse Reactions: Bee Sting Kit *RETIRED-05/12/10 [Bee Sting Kit] Allergy (Verified 10/02/18 12:21) hydrocodone [Hydrocodone] Allergy (Verified 10/02/18 12:21) Hives Past Medical History - Social History Frequency of alcohol use: None Family history: Reviewed & Not Pertinent Pulmonary Medical History: Reports: Hx Asthma, Hx Bronchitis, Hx Pneumonia Neurological Medical History: Reports: Hx Migraine Endocrine Medical History: Reports: Hx Hypothyroidism Renal/ Medical History: Reports: Hx Ovarian Cysts, Hx Pelvic Inflammatory Disease - Chlamydia. Denies: Hx Peritoneal Dialysis Musculoskeltal Medical History: Reports Hx Musculoskeletal Trauma Psychiatric Medical History: Reports: Hx Bipolar Disorder, Hx Depression, Hx Obsessive Compulsive Disorder Traumatic Medical History: Reports: Hx Fractures - Right wrist and left arm 2 and right ankle Past Surgical History: Reports: Hx Adenoidectomy, Hx Dilation and Curettage, Hx Gynecologic Surgery - D & C, Hx Oral Surgery - [place] teeth, Hx Tonsillectomy - Immunizations Immunizations up to date: Yes Hx Diphtheria, Pertussis, Tetanus Vaccination: Yes Physical Exam - Vital signs Vitals: Temp Pulse Resp BP Pulse Ox 97.7 F 72 16 121/68 100 11/05/19 20:09 11/05/19 20:09 11/05/19 20:09 11/05/19 20:09 11/05/19 20:09 - Notes Notes: left hand is swollen, warm, tender to palpation. Pain with flexion. Course - Vital Signs Vital signs: Temp Pulse Resp BP Pulse Ox 98.0 F 68 18 122/67 100 11/05/19 21:39 11/05/19 21:39 11/05/19 21:39 11/05/19 21:39 11/05/19 21:39
[2019-11-05] MEDS ORDERED: VANCOMYCIN HCL INJ 1000 MG VIAL IV ONE (22:34)
[2019-11-05] MEDS ORDERED: CEFTRIAXONE INJ 1000 MG VIAL IV ONE (22:36)
--- NOTE | 2019-11-05 23:05 | RADIOLOGY REPORT (SQ) ---
EXAM DESCRIPTION: XR HAND 3 OR MORE VIEWS COMPLETED DATE/TME: 11/05/2019 22:32 CLINICAL HISTORY: 24 years, Female, hand swelling, eval infection COMPARISON: None. NUMBER OF VIEWS: TECHNIQUE: LIMITATIONS: None. FINDINGS: 3 views of the left hand were obtained. There is considerable dorsal soft tissue swelling. No evidence of radiopaque foreign body within the soft tissues. No evidence of osteomyelitis. Mineralization of bone appears normal. IMPRESSION: Considerable dorsal soft tissue swelling. copyright 2010 [employer]- All Rights Reserved
[2019-11-06 00:38] VITALS: BP 115/74
[2019-11-06] MEDS ORDERED: CEFTRIAXONE INJ 1000 MG VIAL ONE (02:00)
[2019-11-06] MEDS ORDERED: VANCOMYCIN HCL INJ 1000 MG VIAL ONE (03:02)
[2019-11-06] MEDS ORDERED: SULFAMETHOXAZOLE/TRIMETHOPRIM 800-160 MG TABLET ONE (04:53)
--- NOTE | 2019-11-06 06:44 | ER Document Report ---
ED Extremity Problem, Upper - General Chief Complaint: Hand Swelling Stated Complaint: HAND INJURY/SWELLING Notes: Patient is a 24-year-old female who comes emergency department for chief complaint of left hand pain and swelling. Patient states that she actually has a wound over the left ring finger dorsally, she states the area appears to have gotten infected and over the past day or so the areas become swollen, red, tender. Patient is right-handed. She states the wound was from a small garden rake. She denies fever/chills, nausea/vomiting. She denies . She states that she used to use IV drugs but she has not done so in over 2 years. Tetanus reportedly up-to-date. TRAVEL OUTSIDE OF THE [place] IN LAST 30 DAYS: No - Related Data Allergies/Adverse Reactions: Bee Sting Kit *RETIRED-05/12/10 [Bee Sting Kit] Allergy (Verified 10/02/18 12:21) hydrocodone [Hydrocodone] Allergy (Verified 10/02/18 12:21) Hives Past Medical History - General Information source: Patient - Social History Smoking Status: Current Every Day Smoker Frequency of alcohol use: None Lives with: Family Family History: Reviewed & Not Pertinent Patient has homicidal ideation: No Pulmonary Medical History: Reports: Hx Asthma, Hx Bronchitis, Hx Pneumonia Neurological Medical History: Reports: Hx Migraine Endocrine Medical History: Reports: Hx Hypothyroidism Renal/ Medical History: Reports: Hx Ovarian Cysts, Hx Pelvic Inflammatory Disease - Chlamydia. Denies: Hx Peritoneal Dialysis Musculoskeletal Medical History: Reports Hx Musculoskeletal Trauma Psychiatric Medical History: Reports: Hx Bipolar Disorder, Hx Depression, Hx Obsessive Compulsive Disorder Traumatic Medical History: Reports: Hx Fractures - Right wrist and left arm 2 and right ankle Past Surgical History: Reports: Hx Adenoidectomy, Hx Dilation and Curettage, Hx Gynecologic Surgery - D & C, Hx Oral Surgery - [place] teeth, Hx Tonsillectomy - Immunizations Immunizations up to date: Yes Hx Diphtheria, Pertussis, Tetanus Vaccination: Yes Review of Systems - Review of Systems Constitutional: No symptoms reported EENT: No symptoms reported Cardiovascular: No symptoms reported Respiratory: No symptoms reported Gastrointestinal: No symptoms reported Genitourinary: No symptoms reported Female Genitourinary: No symptoms reported Musculoskeletal: See HPI Skin: See HPI Hematologic/Lymphatic: No symptoms reported Neurological/Psychological: No symptoms reported Physical Exam - Vital signs Vitals: Temp Pulse Resp BP Pulse Ox 97.7 F 72 16 121/68 100 11/05/19 20:09 11/05/19 20:09 11/05/19 20:09 11/05/19 20:09 11/05/19 20:09 - Notes Notes: GENERAL: Alert, interacts well. HEAD: Normocephalic, atraumatic. EYES: Pupils equal, round, and reactive to light. Extraocular movements intact. ENT: Oral mucosa moist, tongue midline. Oropharynx unremarkable. Airway patent. NECK: Full range of motion. Supple. Trachea midline. No lymphadenopathy. LUNGS: Clear to auscultation bilaterally, no wheezes, rales, or rhonchi. No respiratory distress. Non-tender chest wall. HEART: Regular rate and rhythm. No murmur ABDOMEN: Soft, non-tender. Non-distended. EXTREMITIES: Left hand with a old healed wound just past the PIP dorsally of the fourth digit, there is swelling of the fourth digit and surrounding erythema, e rythema spreads to the dorsal hand and to the second through fourth fingers. Thumb appears spared, no significant swelling of the palm of the hand. Wrist unremarkable. Cap refill and sensation intact. No purulent drainage. Otherwise unremarkable. BACK: no cervical, thoracic, lumbar midline tenderness. No saddle anesthesia, normal distal neurovascular exam. Moves all extremities in full range of motion. NEUROLOGICAL: Alert and oriented x3. Normal speech. Cranial nerves II through XII grossly intact. Strength 5/5 in all extremities. PSYCH: Normal affect, normal mood. SKIN: Warm, dry, normal turgor. No rashes or lesions noted. Course - Re-evaluation Re-evalutation: Patient was actually reevaluated and then discharge during [facility] downtime. Based on patient's significant hand infection with soft tissue swelling I strongly recommended the patient be admitted to the hospital. However patient declined. Patient states that she would like to be discharged with oral antibiotics and then if she worsens later today or tomorrow she will return. I discussed how she has a significant infection and this could lead to loss of limb or severe infection including sepsis or even . Patient persists, she states she understands the risks but she still insists that she would like to be discharged. Patient without any evidence of substance abuse on my evaluation, patient appears to have full capacity to make this decision. Patient was discharged with antibiotics AGAINST MEDICAL ADVICE. - Vital Signs Vital signs: Temp Pulse Resp BP Pulse Ox 98.1 F 67 18 115/74 100 11/06/19 00:37 11/06/19 00:37 11/06/19 00:37 11/06/19 00:37 11/06/19 00:37 Discharge - Discharge Clinical Impression: Infection of left hand Cellulitis Qualifiers: Site of cellulitis: extremity Site of cellulitis of extremity: finger Laterality: left Qualified Code(s): L03.012 - Cellulitis of left finger Disposition: AGAINST MEDICAL ADVICE
== END 2019-11-06 05:20 | disposition left against medical advice (07) ==
LOC: ER 20:02
DX: L03.012 Cellulitis of left finger (principal); M79.89 Other specified soft tissue disorders; M79.642 Pain in left hand; Z88.8 Allergy status to other drugs, medicaments and biological substances; F17.200 Nicotine dependence, unspecified, uncomplicated; J45.909 Unspecified asthma, uncomplicated
CPT/HCPCS: 99284; 96375; 96365; 96367; 73130; J0696; J3370